=== PATIENT | male | born 1945 | race Caucasian/White ===

== ENCOUNTER 2017-05-21 12:23 | Emergency (ER) | payer MEDICARE, SELFPAY ==
--- NOTE | 2017-05-21 14:44 | RAD ---
RADIOGRAPH RIGHT HAND 3 VIEWS: Date: 05/21/17 HISTORY: 72-year-old male status post acute traumatic injury to the right hand. FINDINGS: There is a comminuted fracture of the third proximal phalanx, involving the diaphysis, with extension s to both the distal and proximal metaphyses. Some of the fracture components are nondisplaced. There is mild displacement involving proximal fracture components. There is mild dorsal angulation of the distal 2/3 of the proximal phalanx relative to the proximal 1/3. No intraarticular extension identifi ed. No dislocation. Diffuse soft tissue swelling of third digit. IMPRESSION: Acute, traumatic, closed, comminuted, mildly displaced, and mildly angulated fracture of the right th ird proximal phalanx. POS: CHRIS
== END 2017-05-21 14:50 | disposition home or self-care (01) ==
LOC: NAV ERS 12:23
DX: S62.612A Displaced fracture of proximal phalanx of right middle finger, initial encounter for closed fracture (principal); I10 Essential (primary) hypertension; E78.5 Hyperlipidemia, unspecified; X50.1XXA Overexertion from prolonged static or awkward postures, initial encounter
CPT/HCPCS: Q4049

== ENCOUNTER 2018-06-21 11:44 | Outpatient (CLI) | payer MEDICARE ==
--- NOTE | 2018-06-21 12:56 | RAD ---
FOUR VIEWS LEFT KNEE: HISTORY: Left knee pain. FINDINGS: AP, lateral, and both oblique views left knee obtained. Images demonstrate vascular calcification seen in the left superficial femoral artery, popliteal paula ry, and post trifurcation arteries. No evidence of acute left knee fractures, subluxations, or bony lesions seen. IMPRESSION: Unremarkable 4 views left knee. POS: C
== END 2018-06-21 11:45 | disposition home or self-care (01) ==
LOC: NAV RAD 11:44
PROVIDERS: ATTEND Internal Medicine
DX: M25.562 Pain in left knee (principal)

== ENCOUNTER 2019-01-03 11:11 | Outpatient (CLI) | payer MEDICARE ==
--- NOTE | 2019-01-03 11:39 | RAD ---
XR Hand Rt 3 View STANDARD: 01/03/2019 11:19 AM CLINICAL INDICATION: Pain COMPARISON: 05/21/2017 FINDINGS: Fracture:Chronic osseous deformity of the proximal phalanx of the third digit, and fifth metacarpal. No acute fracture visualized Arthropathy:Scattered moderate osteoarthritis. Incidental findings:Vascular calcification IMPRESSION: 1. No acute osseous abnormality.
== END 2019-01-03 11:12 | disposition home or self-care (01) ==
LOC: NAV RAD 11:11
PROVIDERS: ATTEND Internal Medicine
DX: M79.641 Pain in right hand (principal)

== ENCOUNTER 2019-02-12 00:03 | Emergency (ER) | payer MEDICARE ==
[2019-02-12] MEDS ORDERED: Ondansetron PF 4 MG/2 ML Vial ONE (01:27)
[2019-02-12] MEDS ORDERED: Morphine 4 MG/ML VIAL ONE (01:27)
[2019-02-12 01:30] LABS: #Eosinphils 0.1 thou/uL (0.0-0.7); #Lymphocytes 1.1 thou/uL (1.20-3.40); #Monocytes 0.7 thou/uL (0.11-0.59); #Neutrophils 4.5 thou/uL (1.40-6.50); %Basophils 0.6 % (0.0-1.0); %Eosinophils 1.7 % (0.0-10.0); %Lymphocytes 16.4 % (21.0-51.0); %Monocytes 10.7 % (0.0-10.0); %Neutrophils 70.6 % (42.0-75.0); Hemoglobin 12.2 g/dL (14.0-18.0); Mean Corpuscular HGB CONC 34.2 g/dL (32.0-36.0); Mean Corpuscular Hemoglobin 30.2 pg (27.0-31.0); Mean Corpuscular Volume 88.3 fL (78.0-98.0); Mean Platelet Volume 5.6 fL (7.4-10.4); Platelet Count 243 thou/uL (130-400); RBC Distribution Width 11.2 % (11.5-14.5); Red Blood Cell (RBC) Count 4.04 mill/uL (4.70-6.10); White Blood Cell (WBC) Count 6.4 thou/uL (4.8-10.8)
[2019-02-12 01:47] LABS: ALT (SGPT) 17 U/L (8-55); AST (SGOT) 19 U/L (5-34); Albumin 3.8 g/dL (3.4-4.8); Alkaline Phosphatase 93 U/L (40-110); Anion Gap 16 mmol/L (10-20); BUN (Urea Nitrogen) 18 mg/dL (8.4-25.7); Bilirubin, Total 0.6 mg/dL (0.2-1.2); CK (CPK) 101 U/L (30-200); Calc. Creatinine Clearance 0 mL/min (70-130); Calcium 8.9 mg/dL (7.8-10.44); Carbon Dioxide 20 mmol/L (23-31); Chloride 104 mmol/L (98-107); Estimated GFR-MDRD 76; Globulin 2.6 g/dL (2.4-3.5); Glucose 107 mg/dL (83-110); Magnesium 2.1 mg/dL (1.6-2.6); Potassium 3.8 mmol/L (3.5-5.1); Protein, Total 6.4 g/dL (5.8-8.1); Sodium 136 mmol/L (136-145)
--- NOTE | 2019-02-12 07:35 | RAD ---
EXAM: Single view of the chest HISTORY: Dyspnea COMPARISON: 06/08/2002 FINDINGS: Single view of the chest shows a normal sized cardiomediastinal silhouette. The patient is status post sternotomy. There is no evidence of consolidation, mass, or pleural effusion. The bones are unremarkable. IMPRESSION: No evidence of acute cardiopulmonary disease
--- NOTE | 2019-02-12 07:45 | CT ---
PRELIMINARY REPORT/[facility]/EMERGENCY AFTER HOURS PROCEDURE: PROCEDURE: CT Head without Contrast . HISTORY: Upper and lower extremity pain with cardiac history. TECHNIQUE: Axial images were performed without the administration of IV contrast with or without mult iplanar reformations . COMPARISON: None . FINDINGS: Brain shows no mass, hemorrhage, or acute stroke. Mild periventricular old microischemic changes. Mild diffuse cerebral and cerebellar atrophy. Modera tely severe atherosclerotic calcifications anterior and posterior circulation at the skull base. Ventricles are normal size for patient's age. No acute skull or scalp abnormality. Mild mucosal thickening and cyst RIGHT maxillary sinus. Clear mastoids. IMPRESSION: No acute intracranial abnormality. Senescent changes. Sinus changes as described above . ELECTRONICALLY SIGNED BY: Topher Vasques MD Feb 12, 2019 4:32:07 AM SEMICONDUCTOR DEVELOPMENT TECHNICIAN FINAL REPORT CT BRAIN WITHOUT CONTRAST: COMPARISON: None. FINDINGS/IMPRESSION: I agree with the findings and impression given in the preliminary report per [facility] physici an. No evidence of acute intracranial abnormality. POS: OFF
--- NOTE | 2019-02-12 07:55 | CT ---
PRELIMINARY REPORT/[facility]/EMERGENCY AFTER HOURS PROCEDURE PROCEDURE: CTA Chest with IV Contrast Material . HISTORY: Upper and lower extremity pain with cardiac history. TECHNIQUE: Axial images were performed with multiplanar and 3-D (maximum intensity projection and adolfo face-shaded) reconstructions. The patient was given iodinated nonionic IV contrast . COMPARISON: None . FINDINGS: Mild atherosclerosis thoracic aorta with no aneurysm or dissection. No evidence of pulmonar y embolus. Mediastinum and hilar regions show no masses or lymphadenopathy. Small hiatal hernia. Hea rt size upper limits of normal with no pericardial fluid. Dependent atelectasis both lung cisneros. No pulmonary consolidation, masses, or pleural fluid. Some emphysematous changes bilaterally. Visualiz ed upper abdomen shows 3 cm caudate lobe cyst. Small stones in the gallbladder with no inflammation and normal size biliary tree. No acute bony abnormality. Previous sternotomy. IMPRESSION: No pulmonary embolus or aortic dissection. COPD. Heart size upper limits of normal. Small hiatal hernia. Cholelithiasis. ELECTRONICALLY SIGNED BY: Topher Vasques MD Feb 12, 2019 4:34:51 AM MANAGER STAFFING FINAL REPORT EMERGENT AFTER HOURS CTA OF THE CHEST: FINDINGS/IMPRESSION: I agree with the findings and impression given in the preliminary report per [facility] physici [facility]. 1. No evidence of pulmonary thromboembolism. 2. Cholelithiasis. 3. Hiatal hernia. 4. Hepatic cyst. POS: OFF
[2019-02-12] MEDS ORDERED: Iopamidol 370 76% 100 ML VIAL ONE (09:00)
== END 2019-02-12 06:01 | disposition short-term general hospital (02) ==
LOC: NAV ERS 00:03
DX: M62.81 Muscle weakness (generalized) (principal); M25.461 Effusion, right knee; R79.1 Abnormal coagulation profile; I25.10 Atherosclerotic heart disease of native coronary artery without angina pectoris; E78.5 Hyperlipidemia, unspecified; E78.00 Pure hypercholesterolemia, unspecified; I10 Essential (primary) hypertension; Z79.82 Long term (current) use of aspirin; Z79.899 Other long term (current) drug therapy
CPT/HCPCS: 70450; 71045; 71275; 80053; 82550; 83735; 83880; 84443; 84484; 85025; 85379; 93005; 94760; 96374; 96375; J2270; J2405; Q9967

== ENCOUNTER 2019-04-27 07:09 | Emergency (ER) | payer MEDICARE ==
[2019-04-27 07:47] LABS: #Lymphocytes 1.6 thou/uL (1.20-3.40); #Monocytes 0.5 thou/uL (0.11-0.59); #Neutrophils 4.9 thou/uL (1.40-6.50); %Basophils 0.3 % (0.0-1.0); %Eosinophils 0.7 % (0.0-10.0); %Lymphocytes 22.3 % (21.0-51.0); %Monocytes 6.7 % (0.0-10.0); %Neutrophils 70.1 % (42.0-75.0); Hemoglobin 13.6 g/dL (14.0-18.0); Mean Corpuscular HGB CONC 33.7 g/dL (32.0-36.0); Mean Corpuscular Hemoglobin 29.1 pg (27.0-31.0); Mean Corpuscular Volume 86.4 fL (78.0-98.0); Mean Platelet Volume 5.5 fL (7.4-10.4); Platelet Count 206 thou/uL (130-400); RBC Distribution Width 14.6 % (11.5-14.5); Red Blood Cell (RBC) Count 4.68 mill/uL (4.70-6.10); White Blood Cell (WBC) Count 7.1 thou/uL (4.8-10.8)
[2019-04-27 08:10] LABS: ALT (SGPT) 23 U/L (8-55); AST (SGOT) 11 U/L (5-34); Albumin 3.8 g/dL (3.4-4.8); Alkaline Phosphatase 64 U/L (40-110); Anion Gap 14 mmol/L (10-20); BUN (Urea Nitrogen) 24 mg/dL (8.4-25.7); Bilirubin, Total 0.7 mg/dL (0.2-1.2); CK (CPK) 32 U/L (30-200); Calc. Creatinine Clearance 0 mL/min (70-130); Calcium 8.3 mg/dL (7.8-10.44); Carbon Dioxide 20 mmol/L (23-31); Chloride 103 mmol/L (98-107); Estimated GFR-MDRD 82; Globulin 1.9 g/dL (2.4-3.5); Glucose 115 mg/dL (83-110); Lipase 20 U/L (8-78); Protein, Total 5.7 g/dL (5.8-8.1); Sodium 133 mmol/L (136-145)
--- NOTE | 2019-04-27 08:39 | RAD ---
PORTABLE CHEST: DATE: 04/27/2019. PROVIDED CLINICAL HISTORY: Chest pain. FINDINGS: Comparison 02/12/2019. Cardiac and mediastinal silhouette is unchanged in appearance. Atheroscleros is, median sternotomy changes, and CABG changes are seen. No focal consolidation, pleural fluid, or pneumothorax apparent. IMPRESSION: No evidence for an acute cardiopulmonary process. POS: TPC
[2019-04-27] MEDS ORDERED: Ondansetron PF 4 MG/2 ML Vial ONE (09:08)
[2019-04-27] MEDS ORDERED: Morphine 4 MG/ML VIAL ONE (09:08)
== END 2019-04-27 09:35 | disposition short-term general hospital (02) ==
LOC: NAV ERS 07:09
DX: T18.128A Food in esophagus causing other injury, initial encounter (principal); R07.9 Chest pain, unspecified; R11.2 Nausea with vomiting, unspecified; M35.3 Polymyalgia rheumatica; I25.10 Atherosclerotic heart disease of native coronary artery without angina pectoris; E78.5 Hyperlipidemia, unspecified; E78.00 Pure hypercholesterolemia, unspecified; I10 Essential (primary) hypertension; Z79.899 Other long term (current) drug therapy; Z79.82 Long term (current) use of aspirin
CPT/HCPCS: 36415; 71045; 80053; 82550; 83690; 84484; 85025; 93005; 96374; 96375; J1610; J2270; J2405

== ENCOUNTER 2019-08-31 09:25 | Emergency (ER) | payer MEDICARE ==
[2019-08-31] MEDS ORDERED: Morphine 4 MG/ML VIAL ONE (09:49)
[2019-08-31] MEDS ORDERED: Ondansetron ODT 4 MG TAB ONE (10:02)
--- NOTE | 2019-08-31 10:04 | RAD ---
XR Chest Pa Lat STANDARD HISTORY: Fall, left chest pain COMPARISON: 06/09/2002 FINDINGS: The heart size is normal. Changes of median sternotomy are again seen. The aorta is tortuou s. The lungs are well expanded without focal areas of consolidation, pneumothorax or pleural effusions. There are old right-sided rib fractures.. IMPRESSION: No radiographic evidence of acute cardiopulmonary process.
--- NOTE | 2019-08-31 10:10 | CT ---
CT BRAIN NONCONTRAST: DATE: 08/31/2019 HISTORY: 74-year-old male status post acute head trauma from fall FINDINGS: There is no evidence of acute intra-axial or extra-axial hemorrhage. There is no midline shift or any other mass effect. There is no extra-axial fluid collection. There is no evidence of obstructive hydrocephalus. Calvarium is intact. There is diffuse brain parenchymal volume loss. There are low att enuation areas in the white matter. These are nonspecific, but in a patient of this age, they are probably chronic ischemic white matter changes due to microvascular atherosclerosis. Approximate 75% or greater opacification of right maxillary sinus. Near total opacification of left sphenoid air cell. No air-fluid levels in paranasal sinuses. The rest of the sinuses are essentially clear. Bilate ral tympanomastoid cavities are grossly clear. IMPRESSION: 1) No acute intracranial findings. 2) involutional changes and chronic ischemic white matter changes. 3) evidence for right ostiomeatal unit occlusive disease of right maxillary sinus. 4) evidence for left sphenoethmoidal recess occlusive disease of left sphenoid air cell.
[2019-08-31] MEDS ORDERED: Ketorolac Tromethamine 30 MG/ML VIAL ONE (10:16)
[2019-08-31] MEDS ORDERED: Acetaminophen 500 MG TAB ONE (10:16)
== END 2019-08-31 10:40 | disposition home or self-care (01) ==
LOC: NAV ERS 09:25
DX: S29.011A Strain of muscle and tendon of front wall of thorax, initial encounter (principal); S22.32XA Fracture of one rib, left side, initial encounter for closed fracture; I10 Essential (primary) hypertension; I25.10 Atherosclerotic heart disease of native coronary artery without angina pectoris; E78.5 Hyperlipidemia, unspecified; Z79.899 Other long term (current) drug therapy; Z79.82 Long term (current) use of aspirin; W01.0XXA Fall on same level from slipping, tripping and stumbling without subsequent striking against object, initial encounter
CPT/HCPCS: 70450; 71046; 96372; 96374; J1885; J2270; Q0162

== ENCOUNTER 2019-09-26 09:33 | Emergency (ER) | payer MEDICARE ==
[2019-09-26] MEDS ORDERED: Morphine 4 MG/ML VIAL ONE ×2 (10:08→12:31)
[2019-09-26] MEDS ORDERED: Sodium Chloride 0.9% 500 ML ONE (10:08)
[2019-09-26] MEDS ORDERED: Ondansetron PF 4 MG/2 ML Vial ONE (10:08)
[2019-09-26 10:29] LABS: #Lymphocytes 0.9 thou/uL (1.20-3.40); #Monocytes 0.6 thou/uL (0.11-0.59); %Basophils 0.4 % (0.0-1.0); %Eosinophils 0.2 % (0.0-10.0); %Lymphocytes 12.5 % (21.0-51.0); %Monocytes 7.6 % (0.0-10.0); %Neutrophils 79.3 % (42.0-75.0); Hemoglobin 14.1 g/dL (14.0-18.0); Mean Corpuscular HGB CONC 34.2 g/dL (32.0-36.0); Mean Corpuscular Hemoglobin 31.3 pg (27.0-31.0); Mean Corpuscular Volume 91.6 fL (78.0-98.0); Mean Platelet Volume 6.4 fL (7.4-10.4); Platelet Count 193 thou/uL (130-400); RBC Distribution Width 11.3 % (11.5-14.5); White Blood Cell (WBC) Count 7.5 thou/uL (4.8-10.8)
[2019-09-26 10:36] LABS: Bilirubin Negative (Negative); Blood, Urine Negative (Negative); Clarity Clear (Clear); Glucose, Urine (Dipstick) Negative (Negative); Ketone, Urine Negative (Negative); Leukocyte Negative (Negative); Nitrite Negative (Negative); Protein, Urine (Dipstick) 30 mg/dL (Neg-Trace); Specific Gravity, Urine 1.025 (1.005-1.030); Urobilinogen 0.2 mg/dL (Less than 2); pH, Urine 6.5 (5.0-9.0)
[2019-09-26 10:38] LABS: Bacteria/HPF None Seen HPF (None Seen); Mucous/LPF Rare LPF (<2+); WBC/HPF None Seen HPF (0-3)
[2019-09-26 10:39] LABS: ALT (SGPT) 18 U/L (8-55); AST (SGOT) 17 U/L (5-34); Albumin 4.1 g/dL (3.4-4.8); Alkaline Phosphatase 95 U/L (40-110); Anion Gap 15 mmol/L (10-20); BUN (Urea Nitrogen) 15 mg/dL (8.4-25.7); Bilirubin, Total 0.7 mg/dL (0.2-1.2); Calc. Creatinine Clearance 0 mL/min (70-130); Calcium 9.2 mg/dL (7.8-10.44); Carbon Dioxide 22 mmol/L (23-31); Chloride 102 mmol/L (98-107); Estimated GFR-MDRD 89; Glucose 167 mg/dL (83-110); Lipase 18 U/L (8-78); Potassium 3.4 mmol/L (3.5-5.1); Protein, Total 6.1 g/dL (5.8-8.1); Sodium 136 mmol/L (136-145)
--- NOTE | 2019-09-26 10:53 | CT ---
CT Stone Protocol 09/26/2019 10:07 AM HISTORY: Right-sided back and flank pain with uncontrolled blood pressure. COMPARISON: CTA abdomen and pelvis on 12/12/2018 Technique: Multiple contiguous axial CT images are obtained through the abdomen and pelvis without IV contrast. Coronal reformats are provided. FINDINGS: This examination is limited for the evaluation of solid organs and vascular structures due to the lac k of intravenous contrast. Lower Chest: Prominent coronary artery calcifications are visualized with dense vascular calcificatio ns in the thoracic aorta. A hiatal hernia is seen with the fundus of the stomach above the level of the hemidiaphragms. Mild dependent atelectasis is seen bilaterally. Abdomen: Liver: Stable cyst caudate lobe of the liver. Gallbladder: Evidence of cholelithiasis with distention of the gallbladder measuring 11 cm in length. Pancreas: Grossly normal nonenhanced CT appearance. Spleen: Grossly normal nonenhanced CT appearance. Adrenals: Grossly normal nonenhanced CT appearance. Kidneys: Exophytic inferior pole left renal cyst again seen. There is no hydronephrosis or calculus i dentified. Ureters: No ureteral calculus is seen.. Pelvis: Urinary bladder: Incompletely distended. Reproductive Organs: No pelvic masses. Lymph Nodes: There is a calcified oval-shaped structure in the lower right pelvis unchanged from prio r study which could be related to calcified lymph node. No enlarged lymph nodes are seen by CT size criteria. Bowel: Colonic diverticulosis. Loops of small bowel are normal in caliber. Appendix: The appendix is normal in caliber. Peritoneum: No free fluid, free air, or fluid collection. Retroperitoneum: within normal limits. Vessels: Dense vascular calcifications in the abdominal aorta and iliac arteries. Aortic stent graft is noted in place related to abdominal aortic aneurysm repair. Aneurysm sac diameter measures 3.4 cm x 3.2 cm and is unchanged compared to prior study. Renal artery stents are again seen bilaterally. . Abdominal Wall: within normal limits. Bones: No lytic or sclerotic osseous lesions. Degenerative changes in the spine. IMPRESSION: 1. No renal or ureteral calculi are seen bilaterally. 2. Cholelithiasis with distention of the gallbladder which measures 11.6 cm in length. 3. Small hiatal hernia. 4. Colonic diverticulosis. 5. Left renal cyst as well as cysts caudate lobe of the liver. 6. Dense vascular calcifications. Endograft repair of abdominal aortic aneurysm is present, and the a neurysm sac diameter is stable compared to prior study in 2019.
--- NOTE | 2019-09-26 11:01 | RAD ---
EXAM: Single view of the chest HISTORY: Right back and flank pain; hypertension COMPARISON: 04/27/2019 FINDINGS: Single view of the chest shows a normal sized cardiomediastinal silhouette. The patient is status post CABG. There is no evidence of consolidation, mass, or pleural effusion. The bones are unremarkable IMPRESSION: No evidence of acute cardiopulmonary disease
[2019-09-26] MEDS ORDERED: Potassium Chloride 20 MEQ TAB ONE (11:50)
[2019-09-26] MEDS ORDERED: Ketorolac Tromethamine 30 MG/ML VIAL ONE (11:59)
== END 2019-09-26 12:44 | disposition short-term general hospital (02) ==
LOC: NAV ERS 09:33
DX: K80.20 Calculus of gallbladder without cholecystitis without obstruction (principal); I10 Essential (primary) hypertension; E87.6 Hypokalemia; I25.10 Atherosclerotic heart disease of native coronary artery without angina pectoris; E78.5 Hyperlipidemia, unspecified; Z79.899 Other long term (current) drug therapy
CPT/HCPCS: 71045; 74176; 80053; 81003; 81015; 83605; 83690; 84484; 85025; 85652; 86140; 87086; 93005; 96361; 96374; 96375; 96376; J1885; J2270; J2405; J7030

== ENCOUNTER 2020-01-08 19:44 | Emergency (ER) | payer MEDICARE ==
[2020-01-08 20:23] LABS: #Lymphocytes 0.3 thou/uL (1.20-3.40); #Monocytes 0.4 thou/uL (0.11-0.59); #Neutrophils 8.7 thou/uL (1.40-6.50); %Basophils 0.2 % (0.0-1.0); %Lymphocytes 3.5 % (21.0-51.0); %Neutrophils 92.3 % (42.0-75.0); Hemoglobin 13.9 g/dL (14.0-18.0); Mean Corpuscular HGB CONC 34.9 g/dL (32.0-36.0); Mean Corpuscular Hemoglobin 33.4 pg (27.0-31.0); Mean Corpuscular Volume 95.6 fL (78.0-98.0); Mean Platelet Volume 5.8 fL (7.4-10.4); Platelet Count 166 thou/uL (130-400); RBC Distribution Width 11.5 % (11.5-14.5); Red Blood Cell (RBC) Count 4.16 mill/uL (4.70-6.10); White Blood Cell (WBC) Count 9.4 thou/uL (4.8-10.8)
[2020-01-08] MEDS ORDERED: Boostrix 0.5 ML (Tdap) VIAL ONE (20:42)
== END 2020-01-08 20:55 | disposition home or self-care (01) ==
LOC: NAV ERS 19:44
DX: S81.802A Unspecified open wound, left lower leg, initial encounter (principal); E78.5 Hyperlipidemia, unspecified; E78.00 Pure hypercholesterolemia, unspecified; I10 Essential (primary) hypertension; Z79.899 Other long term (current) drug therapy; W19.XXXA Unspecified fall, initial encounter
CPT/HCPCS: 12001; 85025; 90715

== ENCOUNTER 2020-01-28 10:44 | Outpatient (CLI) | payer MEDICARE ==
--- NOTE | 2020-01-28 11:32 | RAD ---
EXAM: XR Lumbar Spine 2 Or 3 View DATE: 01/28/2020 10:54 AM INDICATION: Low back pain COMPARISON: MR of the lumbar spine with and without contrast dated August 16, 2019 FINDING: The vertebral body heights and spinal alignment appear within normal limits. The mild disc degenerative disease seen most prominent from L3-4 through L5-S1 is stable. Itjf-qf-rywkfkqk facet osteoarthrosis at L3-4 through L5-S1 is stable appearing. There is an aortobiiliac endograft stent in place. There are severe vascular calcifications seen involving the visualized vasculature. Slight rightward curvature of the lumbar spine is stable. Visualized bowel gas pattern is nonspecific but wi thout evidence of obstruction. IMPRESSION:Stable mild to moderate lumbar spondylosis. No acute fracture or subluxation demonstrated.
== END 2020-01-28 10:45 | disposition home or self-care (01) ==
LOC: NAV RAD 10:44
PROVIDERS: ATTEND Internal Medicine Rheumatology
DX: M54.5 Low back pain (principal); M47.816 Spondylosis without myelopathy or radiculopathy, lumbar region
CPT/HCPCS: 72100

== ENCOUNTER 2020-02-12 10:20 | Emergency (ER) | payer MEDICARE ==
--- NOTE | 2020-02-12 11:16 | RAD ---
XR Chest 1 View Portable History: Dyspnea Comparison: Radiograph February 03, 2020 Findings: Slight interval increased confluence lingular left lower lobe consolidation. New right lowe r lobe consolidation. No pneumothorax. Impression: Mildly progressive multifocal pneumonia.
[2020-02-12 11:23] LABS: #Monocytes 0.5 thou/uL (0.11-0.59); #Neutrophils 7.5 thou/uL (1.40-6.50); %Basophils 0.5 % (0.0-1.0); %Eosinophils 0.3 % (0.0-10.0); %Lymphocytes 10.9 % (21.0-51.0); %Monocytes 5.2 % (0.0-10.0); Hemoglobin 13.4 g/dL (14.0-18.0); Mean Corpuscular HGB CONC 35.7 g/dL (32.0-36.0); Mean Corpuscular Hemoglobin 32.1 pg (27.0-31.0); Mean Corpuscular Volume 90.1 fL (78.0-98.0); Mean Platelet Volume 6.1 fL (7.4-10.4); Platelet Count 317 thou/uL (130-400); RBC Distribution Width 11.6 % (11.5-14.5); Red Blood Cell (RBC) Count 4.16 mill/uL (4.70-6.10); White Blood Cell (WBC) Count 9.1 thou/uL (4.8-10.8)
[2020-02-12 11:38] LABS: ALT (SGPT) 19 U/L (8-55); AST (SGOT) 18 U/L (5-34); Albumin 3.2 g/dL (3.4-4.8); Alkaline Phosphatase 88 U/L (40-110); Anion Gap 14 mmol/L (10-20); BUN (Urea Nitrogen) 21 mg/dL (8.4-25.7); Bilirubin, Total 0.8 mg/dL (0.2-1.2); Calc. Creatinine Clearance 0 mL/min (70-130); Calcium 8.5 mg/dL (7.8-10.44); Carbon Dioxide 21 mmol/L (23-31); Chloride 101 mmol/L (98-107); Globulin 1.9 g/dL (2.4-3.5); Glucose 113 mg/dL (83-110); Magnesium 1.5 mg/dL (1.6-2.6); Potassium 3.3 mmol/L (3.5-5.1); Protein, Total 5.1 g/dL (5.8-8.1); Sodium 133 mmol/L (136-145)
[2020-02-12] MEDS ORDERED: Aspirin Chewable 81 MG TAB ONE (12:43)
== END 2020-02-12 14:50 | disposition short-term general hospital (02) ==
LOC: NAV ERS 10:20
DX: U07.1 COVID-19 (principal); J12.89 Other viral pneumonia; R41.82 Altered mental status, unspecified; R94.31 Abnormal electrocardiogram [ECG] [EKG]; R79.1 Abnormal coagulation profile; R79.89 Other specified abnormal findings of blood chemistry; L89.152 Pressure ulcer of sacral region, stage 2; I71.6 Thoracoabdominal aortic aneurysm, without rupture; E78.5 Hyperlipidemia, unspecified; E78.00 Pure hypercholesterolemia, unspecified; I10 Essential (primary) hypertension; Z79.82 Long term (current) use of aspirin; Z79.899 Other long term (current) drug therapy
CPT/HCPCS: 71045; 80053; 82553; 83605; 83735; 83880; 84484; 85025; 85379; 93005; 94760

== ENCOUNTER 2020-02-16 15:49 | Inpatient (IN) | payer MEDICARE ==
[2020-02-16] MEDS ORDERED: Senokot S 8.6-50 MG TAB PO PRN (17:00)
[2020-02-16] MEDS ORDERED: Zolpidem Tartrate 5 MG TAB PO PRN (17:00)
[2020-02-16] MEDS ORDERED: traMADol HCl 50 MG TAB PO PRN (17:00)
[2020-02-16] MEDS ORDERED: Bisacodyl 10 MG SUPP PR PRN (17:00)
[2020-02-16] MEDS ORDERED: Dextrose 50% Abboject 50 ML SYRINGE SLOW IVP PRN (17:02)
[2020-02-16] MEDS ORDERED: Non-Formulary Item 1 EACH (Omeprazole [Omeprazole] 20 MG Capsule.Dr) PO SCH (18:00)
[2020-02-16] MEDS: Gabapentin 300 MG CAP PO SCH (20:56)
[2020-02-16] MEDS: hydrALAZINE 25 MG TAB PO SCH (20:57)
[2020-02-16] MEDS: Famotidine 20 MG TAB PO SCH (20:57)
[2020-02-17] MEDS ORDERED: Ondansetron ODT 4 MG TAB PO PRN (04:08)
[2020-02-17 05:22] LABS: #Basophils 0.1 thou/uL (0.0-0.2); #Eosinphils 0.1 thou/uL (0.0-0.7); #Lymphocytes 1.1 thou/uL (1.20-3.40); #Monocytes 0.6 thou/uL (0.11-0.59); #Neutrophils 5.5 thou/uL (1.40-6.50); %Basophils 0.8 % (0.0-1.0); %Eosinophils 1.5 % (0.0-10.0); %Lymphocytes 15.5 % (21.0-51.0); %Monocytes 8.2 % (0.0-10.0); Hemoglobin 13.3 g/dL (14.0-18.0); Mean Corpuscular HGB CONC 35.4 g/dL (32.0-36.0); Mean Corpuscular Hemoglobin 32.1 pg (27.0-31.0); Mean Corpuscular Volume 90.7 fL (78.0-98.0); Mean Platelet Volume 6.1 fL (7.4-10.4); Platelet Count 236 thou/uL (130-400); RBC Distribution Width 11.7 % (11.5-14.5); Red Blood Cell (RBC) Count 4.15 mill/uL (4.70-6.10); White Blood Cell (WBC) Count 7.4 thou/uL (4.8-10.8)
[2020-02-17 05:35] LABS: ALT (SGPT) 11 U/L (8-55); AST (SGOT) 18 U/L (5-34); Albumin 2.8 g/dL (3.4-4.8); Alkaline Phosphatase 81 U/L (40-110); Anion Gap 15 mmol/L (10-20); BUN (Urea Nitrogen) 19 mg/dL (8.4-25.7); Bilirubin, Total 0.9 mg/dL (0.2-1.2); Calc. Creatinine Clearance 68 mL/min (70-130); Calcium 7.7 mg/dL (7.8-10.44); Carbon Dioxide 19 mmol/L (23-31); Chloride 106 mmol/L (98-107); Globulin 2.3 g/dL (2.4-3.5); Glucose 113 mg/dL (83-110); Potassium 3.4 mmol/L (3.5-5.1); Protein, Total 5.1 g/dL (5.8-8.1); Sodium 137 mmol/L (136-145)
[2020-02-17] MEDS ORDERED: metFORMIN 500 MG TAB PO SCH (08:00)
[2020-02-17] MEDS: Cilostazol 100 MG TAB PO SCH ×2 (08:11→16:43)
[2020-02-17] MEDS: Amlodipine 5 MG TAB PO SCH (08:12)
[2020-02-17] MEDS: Aspirin 325 MG TAB PO SCH (08:12)
[2020-02-17] MEDS: Chlorthalidone 25 MG TAB PO SCH (08:14)
[2020-02-17] MEDS: hydrALAZINE 25 MG TAB PO SCH ×2 (08:15→20:58)
[2020-02-17] MEDS: Gabapentin 300 MG CAP PO SCH ×2 (08:15→20:58)
[2020-02-17] MEDS: Famotidine 20 MG TAB PO SCH ×2 (08:15→20:58)
[2020-02-17] MEDS: Clopidogrel Bisulfate 75 MG TAB PO SCH (08:15)
--- NOTE | 2020-02-17 08:40 | HP ---
This is a patient of Dr. Reyes Nassar. HISTORY OF PRESENT ILLNESS: The patient is a 74-year-old white male with multiple medical problems including coronary artery disease, status post coronary artery bypass graft, peripheral vascular disease, renal artery stenosis, polymyalgia rheumatica on intermittent steroids, treatment with subsequent decompensation of diabetic control, hypertension, and thoracoabdominal aneurysm with previous stenting, who has had diagnosis of COVID-19 pneumonias since February 02 with treatment with remdesivir, Decadron and improvement in his oxygenation and subsequent dismissal on February 07, however, he has been unable to maintain ADLs secondary to severe weakness and had shortness of breath on exertion despite no hypoxemia. Therefore, he presented back to the [facility]'s Emergency Room on February 11. He was found to have indeterminate D-dimer and troponin. There was some abnormality of his chest x-ray, where he has CT angio of the chest, which showed no evidence of pulmonary embolus and only findings of the stable infiltrates from COVID pneumonia. While he has been there, he has been fairly stable except for his weakness with no need for any pulmonary or cardiac intervention, but has been unable to maintain ADLs and therefore is recommended to the [facility] for PT and OT. At this time, the patient is in no distress, lying in his bed with no chest pain, shortness of breath. His main complaint is weakness and anorexia. He states that he has lost some weight, but does not know how much is complaining of intermittent nausea. MEDICATIONS: He has been taking his medications of; 1. Amlodipine 5 mg daily. 2. Aspirin 325 daily. 3. Chlorthalidone 12.5 daily. 4. Cilostazol 100 mg daily. 5. Clopidogrel 75 twice daily. 6. Famotidine 20 twice daily. 7. Gabapentin 600 twice daily. 8. Metformin 500 in the morning. 9. Hydralazine 25 twice daily. 10. Sertraline 50 mg daily. ALLERGIES: HE HAS HISTORY OF ALLERGIES TO ATORVASTATIN, SIMVASTATIN, AND LISINOPRIL. PAST MEDICAL HISTORY: He has the above-mentioned medical history. PAST SURGICAL HISTORY: Positive for the above-mentioned coronary artery bypass graft, esophageal dilation, multiple vascular stents. FAMILY MEDICAL HISTORY: Positive for diffuse coronary artery disease. SOCIAL HISTORY: Nonsmoker. Rarely drinks alcohol. He is . He lives with his . REVIEW OF SYSTEMS: HEENT: Denies headaches, dizziness, change in vision or hearing, hoarseness, or dysphagia. PULMONARY: Denies cough, sputum production, pneumonia, asthma, or tuberculosis. CARDIOVASCULAR: Denies chest pain, orthopnea, paroxysmal nocturnal dyspnea, or edema. GASTROINTESTINAL: Complains of anorexia and nausea, poor appetite, but no vomiting. No constipation or diarrhea. No abdominal pain. GENITOURINARY: Denies dysuria, hematuria, or nocturia. MUSCULOSKELETAL: Complains of diffuse generalized weakness, but no specific joint tenderness or weakness. NEUROLOGIC: Denies localized numbness or tingling in arms or extremities. PHYSICAL EXAMINATION: GENERAL: The patient is an elderly white male, lying in bed, in no acute distress. Oriented x3 and cooperative. VITAL SIGNS: Showed a temperature of 98.6, pulse 97, respirations 18, O2 saturations 96% on room air, and blood pressure is 111/65. HEENT: Pupils are equal, round, and reactive to light and accommodation. Sclerae are anicteric. Conjunctivae are pale. Oral mucous membranes, well hydrated. NECK: Supple. There are no nodes or masses. JVP is not elevated. LUNGS: Clear. CARDIAC: Shows regular rhythm. No gallops or murmurs. ABDOMEN: Soft and nontender with no masses or organomegaly. SKIN/EXTREMITIES: Showed no edema, clubbing, or cyanosis. NEUROLOGICAL: Intact. LABORATORY DATA: Done yesterday showed troponin indeterminate. Accu-Cheks ranged to 165. White count 7100, hematocrit 33, and hemoglobin 12. TSH 2.1. ASSESSMENT AND PLAN: A 74-year-old white male with history of hypertension, hyperlipidemia, diffuse peripheral vascular disease, coronary artery disease, who presents with persistent weakness, debility, inability to maintain ADLs, and COVID-19 pneumonia. He is not hypoxic at this time on room air. Vital signs are stable. He is very weak and is complaining mainly of nausea and anorexia. He is continued on his metformin plus Plavix, amlodipine, chlorthalidone, gabapentin, metformin, so we will discontinue that and continue to control his diabetes only with Accu-Cheks. He will be started on PT. We will monitor for hypoxemia. We will change to vital signs with therapy, possibly monitor for any episodes of chest pain or shortness of breath or signs of angina with his therapy. Job ID: [id number]
[2020-02-18] MEDS: Cilostazol 100 MG TAB PO SCH ×2 (07:29→16:26)
--- NOTE | 2020-02-18 08:20 | PRG ---
DATE OF SERVICE: 02/17/[address] Reyes Nassar. SUBJECTIVE: The patient is lying in bed, eating his supper, but states he still has poor appetite with no further nausea, but has required Zofran over the last 24 hours. He does state that he is taking metformin now and had not been taking it previously as an outpatient. OBJECTIVE: VITAL SIGNS: Show temperature 98.6, pulse 99, respirations 20, O2 saturations 96% on room air, blood pressure 129/73. LUNGS: Clear. CARDIAC: Showed regular rhythm. ABDOMEN: Soft and nontender. ASSESSMENT: 1. Severe deconditioning secondary to COVID-19 pneumonia. Awaiting therapy tomorrow. 2. COVID-19 pneumonia, resolved. 3. Type 2 diabetes, controlled fairly well on metformin, but with possible side effect of nausea and anorexia. 4. History of polymyalgia rheumatica, on no treatment at this time. 5. Coronary artery disease, status post coronary artery bypass graft, asymptomatic. PLAN: PT/OT tomorrow. Dr. Nassar to resume care tonight. Consider change in metformin to another oral hypoglycemic. Job ID: [id number]
[2020-02-18] MEDS: Gabapentin 300 MG CAP PO SCH ×2 (08:40→20:51)
[2020-02-18] MEDS: Amlodipine 5 MG TAB PO SCH (08:41)
[2020-02-18] MEDS: Chlorthalidone 25 MG TAB PO SCH (08:42)
[2020-02-18] MEDS: Aspirin 325 MG TAB PO SCH (08:43)
[2020-02-18] MEDS: Clopidogrel Bisulfate 75 MG TAB PO SCH (08:43)
[2020-02-18] MEDS: Famotidine 20 MG TAB PO SCH ×2 (08:43→20:52)
[2020-02-18] MEDS: hydrALAZINE 25 MG TAB PO SCH ×2 (08:44→20:52)
--- NOTE | 2020-02-18 13:31 | PRG ---
DATE OF SERVICE: 02/18/2020 SUBJECTIVE: Mr. Leger is resting in bed. He just finished his lunch. He apparently walked all the way around the nurse's station. He states that he is feeling stronger. He is able to get out of bed without using his walker. He is hoping to go home soon. OBJECTIVE: VITAL SIGNS: He is afebrile. Heart rate 99, respirations 18, oxygen saturation 96% on room air, blood pressure 132/76. CARDIOVASCULAR: S1, S2 plus. RESPIRATORY: Normal vesicular breath sounds. ABDOMEN: Soft, nontender. Bowel sounds heard in all quadrants. EXTREMITIES: Without cyanosis or clubbing. CENTRAL NERVOUS SYSTEM: Generalized weakness, otherwise nonfocal. IMPRESSION: 1. Recent COVID-19 infection. 2. Diabetes mellitus type 2, new onset, likely due to steroid use. 3. Polymyalgia rheumatica. 4. Coronary artery disease. 5. Peripheral vascular disease. 6. Lumbar radiculopathy. PLAN: 1. Continue current medications. 2. 1800-calorie heart healthy ADA diet. 3. Accu-Cheks with sliding scale coverage. 4. DVT prophylaxis with PlexiPulses as he is more active. 5. Decubitus precautions. 6. Stress ulcer prophylaxis. 7. Monitor polymyalgia rheumatica. 8. Continue therapy. 9. Routine laboratory values. 10. Await case conference. 11. No family at bedside. Job ID: [id number]
[2020-02-19] MEDS: Cilostazol 100 MG TAB PO SCH ×2 (07:43→17:14)
[2020-02-19] MEDS: Aspirin 325 MG TAB PO SCH (09:25)
[2020-02-19] MEDS: Gabapentin 300 MG CAP PO SCH ×2 (09:25→20:52)
[2020-02-19] MEDS: Clopidogrel Bisulfate 75 MG TAB PO SCH (09:26)
[2020-02-19] MEDS: Amlodipine 5 MG TAB PO SCH (09:27)
[2020-02-19] MEDS: Famotidine 20 MG TAB PO SCH ×2 (09:27→20:52)
[2020-02-19] MEDS: Chlorthalidone 25 MG TAB PO SCH (09:28)
[2020-02-19] MEDS: hydrALAZINE 25 MG TAB PO SCH ×2 (09:29→20:52)
--- NOTE | 2020-02-19 13:36 | PRG ---
DATE OF SERVICE: 02/19/2020 SUBJECTIVE: Mr. Leger is resting in bed. He apparently completed all of his sessions of therapy this morning. He is happy with his progress. OBJECTIVE: VITAL SIGNS: He is afebrile. Heart rate 113, respirations 20, oxygen saturation 93% on room air, blood pressure 134/72. CARDIOVASCULAR SYSTEM: S1 and S2 plus. RESPIRATORY SYSTEM: Normal vesicular breath sounds. ABDOMEN: Soft, nontender. Bowel sounds heard in all quadrants. EXTREMITIES: Without cyanosis or clubbing. CENTRAL NERVOUS SYSTEM: Generalized weakness, otherwise nonfocal. IMPRESSION: 1. Recent COVID-19 infection. 2. Coronary artery disease. 3. Peripheral vascular disease. 4. Diabetes mellitus type 2, due to steroids. 5. Low back pain. 6. Polymyalgia rheumatica. PLAN: 1. Continue current medications. 2. 1800 calorie heart healthy ADA diet. 3. Accu-Cheks with sliding scale coverage. 4. Physical therapy. 5. Routine laboratory values. 6. Discussed with the patient in detail. All questions answered. Reviewed case conference notes and they recommend the patient continue therapy here at least for the next few days. Job ID: [id number]
[2020-02-20] MEDS: Clopidogrel Bisulfate 75 MG TAB PO SCH (08:16)
[2020-02-20] MEDS: Famotidine 20 MG TAB PO SCH ×2 (08:16→20:03)
[2020-02-20] MEDS: Gabapentin 300 MG CAP PO SCH ×2 (08:16→20:03)
[2020-02-20] MEDS: Aspirin 325 MG TAB PO SCH (08:16)
[2020-02-20] MEDS: Cilostazol 100 MG TAB PO SCH ×2 (08:18→15:49)
[2020-02-20] MEDS: Chlorthalidone 25 MG TAB PO SCH (08:20)
[2020-02-20] MEDS: hydrALAZINE 25 MG TAB PO SCH ×2 (08:20→20:03)
[2020-02-20] MEDS: Amlodipine 5 MG TAB PO SCH (08:21)
[2020-02-20] MEDS ORDERED: traMADol HCl 50 MG TAB PO PRN (13:14)
--- NOTE | 2020-02-20 13:45 | PRG ---
DATE OF SERVICE: 02/20/2020 SUBJECTIVE: Mr. Leger is doing well. He apparently is participating with therapy, but his endurance is low. They have noticed episodes of orthostatic hypotension, and advised him to use knee high CRISTELA hose. He has been off his metformin and his prednisone and he is not showing any signs of any polymyalgia flare up at present. His blood sugars also much improved at 141, 127 and 151, and plan is to just monitor his blood sugars with him, staying off the metformin since he is not on the steroids anymore. OBJECTIVE: VITAL SIGNS: He is afebrile. Heart rate 81, respirations 18, oxygen saturation 96% on room air, blood pressure 136/74. CARDIOVASCULAR SYSTEM: S1, S2 plus. RESPIRATORY SYSTEM: Normal vesicular breath sounds. ABDOMEN: Soft, nontender. Bowel sounds heard in all quadrants. EXTREMITIES: Without cyanosis or clubbing. CENTRAL NERVOUS SYSTEM: Generalized weakness, otherwise nonfocal. IMPRESSION: 1. Steroid-induced hyperglycemia/diabetes mellitus. 2. Polymyalgia rheumatica, in remission at present. 3. Coronary artery disease. 4. Peripheral vascular disease. 5. Lumbar radiculopathy. 6. Hypokalemia, which has been replaced. 7. Deconditioning. PLAN: 1. Continue current medications. 2. 1800-calorie heart healthy ADA diet. 3. Accu-Cheks with sliding scale coverage. 4. Keep him off prednisone and metformin unless he shows any flare up of polymyalgia. 5. Continue physical therapy. 6. Routine laboratory checks with CBC, BMP in the morning. 7. Dr. Kevin on-call starting this evening. Job ID: [id number]
[2020-02-21 05:44] LABS: #Basophils 0.1 thou/uL (0.0-0.2); #Eosinphils 0.1 thou/uL (0.0-0.7); #Lymphocytes 1.3 thou/uL (1.20-3.40); #Monocytes 0.6 thou/uL (0.11-0.59); #Neutrophils 4.2 thou/uL (1.40-6.50); %Basophils 1.3 % (0.0-1.0); %Eosinophils 1.5 % (0.0-10.0); %Lymphocytes 20.5 % (21.0-51.0); %Monocytes 8.9 % (0.0-10.0); %Neutrophils 67.8 % (42.0-75.0); Hemoglobin 12.3 g/dL (14.0-18.0); Mean Corpuscular Volume 88.9 fL (78.0-98.0); Mean Platelet Volume 6.2 fL (7.4-10.4); Platelet Count 237 thou/uL (130-400); RBC Distribution Width 11.6 % (11.5-14.5); Red Blood Cell (RBC) Count 3.84 mill/uL (4.70-6.10); White Blood Cell (WBC) Count 6.3 thou/uL (4.8-10.8)
[2020-02-21 05:59] LABS: Anion Gap 14 mmol/L (10-20); BUN (Urea Nitrogen) 15 mg/dL (8.4-25.7); Calc. Creatinine Clearance 85 mL/min (70-130); Carbon Dioxide 23 mmol/L (23-31); Chloride 102 mmol/L (98-107); Glucose 114 mg/dL (83-110); Sodium 136 mmol/L (136-145)
[2020-02-21 06:09] LABS: Potassium 2.5 mmol/L (3.5-5.1)
[2020-02-21] MEDS: Aspirin 325 MG TAB PO SCH (08:21)
[2020-02-21] MEDS: Clopidogrel Bisulfate 75 MG TAB PO SCH (08:22)
[2020-02-21] MEDS: Amlodipine 5 MG TAB PO SCH (08:22)
[2020-02-21] MEDS: Cilostazol 100 MG TAB PO SCH ×2 (08:22→17:18)
[2020-02-21] MEDS: Gabapentin 300 MG CAP PO SCH ×2 (08:23→21:31)
[2020-02-21] MEDS: hydrALAZINE 25 MG TAB PO SCH ×2 (08:23→21:32)
[2020-02-21] MEDS: Famotidine 20 MG TAB PO SCH ×2 (08:24→21:32)
[2020-02-21] MEDS: Potassium Chloride 20 MEQ TAB PO SCH ×2 (08:24→17:18)
[2020-02-21] MEDS: Chlorthalidone 25 MG TAB PO SCH (08:24)
[2020-02-21] MEDS: HumaLOG 300 UNITS/3 ML VIAL SC PRN (11:50)
[2020-02-22] MEDS: Potassium Chloride 20 MEQ TAB PO SCH (08:05)
[2020-02-22] MEDS: Clopidogrel Bisulfate 75 MG TAB PO SCH (08:05)
[2020-02-22] MEDS: Amlodipine 5 MG TAB PO SCH (08:06)
[2020-02-22] MEDS: Cilostazol 100 MG TAB PO SCH (08:06)
[2020-02-22] MEDS: Aspirin 325 MG TAB PO SCH (08:06)
[2020-02-22] MEDS: Gabapentin 300 MG CAP PO SCH (08:07)
[2020-02-22] MEDS: Famotidine 20 MG TAB PO SCH (08:08)
[2020-02-22] MEDS: hydrALAZINE 25 MG TAB PO SCH (08:08)
[2020-02-22] MEDS: Chlorthalidone 25 MG TAB PO SCH (08:09)
--- NOTE | 2020-02-22 08:44 | PRG ---
DATE OF SERVICE: 02/21/2020 SUBJECTIVE: The patient is lying in bed, visiting with family. He has been working with therapy and is feeling somewhat better but still feels not stable to be discharged home. Family agrees with his therapy. OBJECTIVE: Shows temperature 97.6, pulse 97, respirations 20, O2 saturations 95% on room air, blood pressure 123/74. Accu-Cheks are stable from 116 to 193. Sodium 136, potassium has decreased to 2.5, chloride 102, bicarb 23, BUN 15, creatinine 0.9. White count 6300, hematocrit 34, hemoglobin 12.3. PHYSICAL EXAMINATION: LUNGS: Clear. CARDIAC: Showed regular rhythm. ABDOMEN: Soft, nontender. ASSESSMENT: 1. COVID-19 infection with persistent malaise. No respiratory distress. Cooperating with therapy. 2. New onset of hypokalemia, most likely related to chlorthalidone, will be discontinued. He will be started on K-Dur at 20 mEq twice daily. 3. Hypertension, well controlled. We will monitor closely off chlorthalidone and only on hydralazine and amlodipine. 4. Type 2 diabetes, controlled to goal. Good compliance to diet and medications in the hospital. PLAN: 1. K-Dur 20 mEq twice daily. 2. Discontinue chlorthalidone. 3. Monitor vital signs closely with therapy. 4. Continue PT/OT. 5. Continue Accu-Cheks to monitor and titrate and control diabetes. 6. Repeat basic metabolic profile in the a.m. Job ID: [id number]
[2020-02-22 10:20] LABS: Anion Gap 14 mmol/L (10-20); BUN (Urea Nitrogen) 13 mg/dL (8.4-25.7); Calc. Creatinine Clearance 74 mL/min (70-130); Calcium 8.3 mg/dL (7.8-10.44); Carbon Dioxide 22 mmol/L (23-31); Chloride 102 mmol/L (98-107); Glucose 160 mg/dL (83-110); Sodium 135 mmol/L (136-145)
[2020-02-22 10:24] LABS: Potassium 2.9 mmol/L (3.5-5.1)
--- NOTE | 2020-02-22 11:37 | PRG ---
DATE OF SERVICE: 02/22/2020 SUBJECTIVE: Patient feels well, lying in bed, but did become hypotensive and tachycardic, stay with therapy. He had . No chest pain, fever, chills, or cough. OBJECTIVE: LUNGS: Show a few crackles in the bases. CARDIAC: Shows regular rhythm. ABDOMEN: Soft and nontender. SKIN/EXTREMITIES: Showed no edema, clubbing, or cyanosis, VITAL SIGNS: O2 sats 94% on room air, pulse 106, blood pressure 119/77. ASSESSMENT: 1. Persistent exertional tachycardia and hypotension, possibly due to deconditioning, but we will get CBC, chest x-ray, and comp met. 2. Hypokalemia, on supplemental treatment with K-Dur 20 mEq twice daily. We will repeat level today. 3. Type 2 diabetes, controlled to goal. 4. Hypotension. We will discontinue chlorthalidone as could be causing hypotension and hypokalemia. Job ID: [id number]
[2020-02-22 12:48] LABS: #Basophils 0.1 thou/uL (0.0-0.2); #Eosinphils 0.1 thou/uL (0.0-0.7); #Lymphocytes 1.5 thou/uL (1.20-3.40); #Monocytes 0.8 thou/uL (0.11-0.59); #Neutrophils 6.3 thou/uL (1.40-6.50); %Basophils 0.9 % (0.0-1.0); %Eosinophils 1.1 % (0.0-10.0); %Lymphocytes 17.3 % (21.0-51.0); %Monocytes 8.9 % (0.0-10.0); %Neutrophils 71.8 % (42.0-75.0); Mean Corpuscular HGB CONC 34.1 g/dL (32.0-36.0); Platelet Count 290 thou/uL (130-400); RBC Distribution Width 12.2 % (11.5-14.5); White Blood Cell (WBC) Count 8.8 thou/uL (4.8-10.8)
[2020-02-22 13:06] LABS: AST (SGOT) 17 U/L (5-34); Alkaline Phosphatase 90 U/L (40-110); Bilirubin, Total 0.7 mg/dL (0.2-1.2); Globulin 2.5 g/dL (2.4-3.5); Protein, Total 5.5 g/dL (5.8-8.1)
[2020-02-22 13:13] LABS: ALT (SGPT) 11 U/L (8-55)
[2020-02-22 13:24] LABS: Sodium 135 mmol/L (136-145)
[2020-02-22 13:25] LABS: Anion Gap 14 mmol/L (10-20); Carbon Dioxide 22 mmol/L (23-31); Chloride 102 mmol/L (98-107); Potassium 2.9 mmol/L (3.5-5.1)
[2020-02-22 13:26] LABS: BUN (Urea Nitrogen) 13 mg/dL (8.4-25.7); Calc. Creatinine Clearance 74 mL/min (70-130); Calcium 8.3 mg/dL (7.8-10.44); Glucose 106 mg/dL (83-110)
[2020-02-23] MEDS: Gabapentin 300 MG CAP PO SCH ×3 (06:44→19:43)
[2020-02-23] MEDS: hydrALAZINE 25 MG TAB PO SCH ×3 (06:45→19:43)
[2020-02-23] MEDS: Famotidine 20 MG TAB PO SCH ×3 (06:46→19:43)
[2020-02-23] MEDS: Amlodipine 5 MG TAB PO SCH (08:16)
[2020-02-23] MEDS: Clopidogrel Bisulfate 75 MG TAB PO SCH (08:16)
[2020-02-23] MEDS: Potassium Chloride 20 MEQ TAB PO SCH ×3 (08:17→17:19)
[2020-02-23] MEDS: Aspirin 325 MG TAB PO SCH (08:22)
--- NOTE | 2020-02-23 10:31 | RAD ---
RADIOGRAPH CHEST 1 VIEW: DATE: 02/23/2020 TIME: 10:22 AM HISTORY: COVID-19 +74-year-old male with hypotension COMPARISON: 02/12/2020 FINDINGS: Mild faint infiltrates at left lower lung zone and left perihilar mid lung zone, all appear similar t o prior study. No consolidation. No new infiltrate identified. Signs of previous CABG. No cardiomegaly or pneumothorax. No interval change. IMPRESSION: 1) mild left-sided infiltrates. 2) no interval change
[2020-02-23 11:37] LABS: Anion Gap 14 mmol/L (10-20); BUN (Urea Nitrogen) 15 mg/dL (8.4-25.7); Calc. Creatinine Clearance 69 mL/min (70-130); Calcium 8.2 mg/dL (7.8-10.44); Carbon Dioxide 23 mmol/L (23-31); Chloride 102 mmol/L (98-107); Glucose 190 mg/dL (83-110); Potassium 3.1 mmol/L (3.5-5.1); Sodium 136 mmol/L (136-145)
[2020-02-23] MEDS: HumaLOG 300 UNITS/3 ML VIAL SC PRN (13:13)
[2020-02-23] MEDS: Cilostazol 100 MG TAB PO SCH ×3 (14:09→17:19)
[2020-02-23] MEDS: Acetaminophen 325 MG TAB PO PRN (19:42)
[2020-02-24 06:03] LABS: Anion Gap 12 mmol/L (10-20); BUN (Urea Nitrogen) 14 mg/dL (8.4-25.7); Calc. Creatinine Clearance 89 mL/min (70-130); Calcium 8.3 mg/dL (7.8-10.44); Carbon Dioxide 24 mmol/L (23-31); Chloride 105 mmol/L (98-107); Glucose 109 mg/dL (83-110); Sodium 138 mmol/L (136-145)
[2020-02-24] MEDS ORDERED: predniSONE 10 MG TAB PO SCH (08:00)
[2020-02-24] MEDS: Cilostazol 100 MG TAB PO SCH ×2 (08:08→16:48)
[2020-02-24] MEDS: predniSONE 20 MG TAB PO SCH (08:10)
[2020-02-24] MEDS: Gabapentin 300 MG CAP PO SCH ×2 (08:10→19:51)
[2020-02-24] MEDS: Potassium Chloride 20 MEQ TAB PO SCH ×2 (08:10→16:49)
[2020-02-24] MEDS: hydrALAZINE 25 MG TAB PO SCH ×2 (08:12→19:51)
[2020-02-24] MEDS: Famotidine 20 MG TAB PO SCH ×2 (08:12→19:50)
[2020-02-24] MEDS: Aspirin 325 MG TAB PO SCH (08:12)
[2020-02-24] MEDS: Amlodipine 5 MG TAB PO SCH (08:13)
[2020-02-24] MEDS: Clopidogrel Bisulfate 75 MG TAB PO SCH (08:14)
[2020-02-24] MEDS: HumaLOG 300 UNITS/3 ML VIAL SC PRN ×2 (12:22→17:45)
[2020-02-24 15:52] VITALS: BMI 29.7
[2020-02-25] MEDS: Acetaminophen 325 MG TAB PO PRN (04:03)
[2020-02-25 05:58] LABS: Anion Gap 13 mmol/L (10-20); BUN (Urea Nitrogen) 18 mg/dL (8.4-25.7); Calc. Creatinine Clearance 89 mL/min (70-130); Calcium 8.3 mg/dL (7.8-10.44); Carbon Dioxide 22 mmol/L (23-31); Chloride 109 mmol/L (98-107); Glucose 138 mg/dL (83-110); Potassium 3.6 mmol/L (3.5-5.1); Sodium 140 mmol/L (136-145)
[2020-02-25] MEDS: Potassium Chloride 20 MEQ TAB PO SCH ×2 (07:55→17:28)
[2020-02-25] MEDS: Gabapentin 300 MG CAP PO SCH ×2 (07:56→21:13)
[2020-02-25] MEDS: Aspirin 325 MG TAB PO SCH (07:57)
[2020-02-25] MEDS: Cilostazol 100 MG TAB PO SCH ×2 (07:58→17:27)
[2020-02-25] MEDS: Clopidogrel Bisulfate 75 MG TAB PO SCH (08:02)
[2020-02-25] MEDS: predniSONE 20 MG TAB PO SCH (08:03)
[2020-02-25] MEDS: Famotidine 20 MG TAB PO SCH ×2 (08:03→21:14)
[2020-02-25] MEDS: hydrALAZINE 25 MG TAB PO SCH ×2 (08:03→21:14)
[2020-02-25] MEDS: Amlodipine 5 MG TAB PO SCH (09:21)
[2020-02-25] MEDS: HumaLOG 300 UNITS/3 ML VIAL SC PRN ×2 (12:09→17:28)
[2020-02-26] MEDS: Aspirin 325 MG TAB PO SCH (08:31)
[2020-02-26] MEDS: hydrALAZINE 25 MG TAB PO SCH ×2 (08:31→20:34)
[2020-02-26] MEDS: Cilostazol 100 MG TAB PO SCH ×2 (08:31→16:21)
[2020-02-26] MEDS: Gabapentin 300 MG CAP PO SCH ×2 (08:31→20:35)
[2020-02-26] MEDS: Potassium Chloride 20 MEQ TAB PO SCH ×2 (08:31→16:21)
[2020-02-26] MEDS: predniSONE 20 MG TAB PO SCH (08:32)
[2020-02-26] MEDS: Famotidine 20 MG TAB PO SCH ×2 (08:32→20:35)
[2020-02-26] MEDS: Amlodipine 5 MG TAB PO SCH (08:33)
[2020-02-26] MEDS: Clopidogrel Bisulfate 75 MG TAB PO SCH (08:34)
[2020-02-26] MEDS: HumaLOG 300 UNITS/3 ML VIAL SC PRN (17:42)
--- NOTE | 2020-02-26 20:40 | PRG ---
DATE OF SERVICE: 02/23/2020 SUBJECTIVE: Patient still feels weak by taking potassium, is eating better. is in the room and states that he needs to be on his prednisone, which was stopped at the other hospital. OBJECTIVE: VITAL SIGNS: Shows temperature 97.6, pulse 85, respirations 20, O2 sats 97% on room air, blood pressure is 141/75. LUNGS: Clear. CARDIAC: Showed regular rhythm. ABDOMEN: Soft and nontender. LABORATORY DATA: White count is 8800, hematocrit 38, hemoglobin 13, sodium 136, potassium 3.1, chloride 102, bicarb 23, BUN 15, creatinine 1.11, GFR 64. ASSESSMENT: 1. Coronavirus disease 2019 pneumonia, resolved with persistent deconditioning. 2. Polymyalgia rheumatica, possibly contributing to deconditioning. 3. Type 2 diabetes, only fair control on sliding scale as metformin was discontinued because of nausea. PLAN: 1. Start prednisone 10 mg in the morning. 2. Discontinue metformin tomorrow. 3. Continue sliding scale to control diabetes. Job ID: [id number]
--- NOTE | 2020-02-26 21:06 | PRG ---
DATE OF SERVICE: 02/24/2020 SUBJECTIVE: The patient feels better, working in the room with family, increased appetite. OBJECTIVE: VITAL SIGNS: Shows temperature 97.5, pulse 86, respirations 18, O2 saturation is 95% on room air, blood pressure 146/82. LABORATORY DATA: Sodium 138, potassium 3.0, chloride 105, bicarb 24, BUN 14, creatinine 0.86. ASSESSMENT: 1. Persistent hypokalemia. We will increase potassium to 20 mEq twice daily. 2. Polymyalgia rheumatica with initial dose of steroid 10 mg daily with possible slight improvement already. 3. Coronavirus disease 2019 pneumonia resolved. 4. Severe deconditioning with inability to work with therapy. 5. Type 2 diabetes, only fair control on sliding scale. We will continue to monitor. PLAN: 1. Continue PT, OT in the a.m. 2. Continue prednisone 10 mg daily. 3. Continue KCl 20 mEq twice daily[address] 4. Dr. Calero back tonight. 5. Continue Accu-Cheks to monitor and titrate and control diabetes. Job ID: [id number]
[2020-02-27] MEDS: Gabapentin 300 MG CAP PO SCH ×2 (08:02→21:02)
[2020-02-27] MEDS: Clopidogrel Bisulfate 75 MG TAB PO SCH (08:03)
[2020-02-27] MEDS: Cilostazol 100 MG TAB PO SCH ×2 (08:03→17:11)
[2020-02-27] MEDS: Potassium Chloride 20 MEQ TAB PO SCH ×2 (08:03→17:11)
[2020-02-27] MEDS: Aspirin 325 MG TAB PO SCH (08:04)
[2020-02-27] MEDS: hydrALAZINE 25 MG TAB PO SCH ×2 (08:04→21:02)
[2020-02-27] MEDS: Amlodipine 5 MG TAB PO SCH (08:06)
[2020-02-27] MEDS: Famotidine 20 MG TAB PO SCH ×2 (08:06→21:02)
[2020-02-27] MEDS: predniSONE 20 MG TAB PO SCH (08:06)
--- NOTE | 2020-02-27 12:42 | PRG ---
DATE OF SERVICE: 02/26/2020 SUBJECTIVE: Mr. Leger is doing the same. Denies any complaints, he is getting stronger. He is on prednisone, I am not sure why. Patient states that he has not noticed any stiffness. I will check with Dr. Kevin as he started it on Tuesday. I do not see a progress note. OBJECTIVE: VITAL SIGNS: He is afebrile. Heart rate is 77, respirations 20, oxygen saturation 97% on room air, blood pressure 153/88. CARDIOVASCULAR: S1, S2 plus. RESPIRATORY: Normal vesicular breath sounds. ABDOMEN: Soft, nontender. Bowel sounds in all quadrants. EXTREMITIES: Without cyanosis, clubbing. CENTRAL NERVOUS SYSTEM: Improving deconditioning. IMPRESSION: 1. Resolving COVID-19 infection. 2. Polymyalgia rheumatica, doing well without any steroids, but apparently his wanted him to be on some steroids and so Dr. Kevin started him on 10 mg. I will check with Dr. Kevin and if he did not notice any signs of PMR flare up, I would reduce it to 5 mg. I did inform the patient about his blood sugars and his diabetes directly related to his steroids. 3. Coronary artery disease. 4. Peripheral vascular disease. 5. Lumbar radiculopathy. 6. Improving deconditioning. PLAN: 1. Continue current medications. 2. Nutritional support. 3. Check with Dr. Kevin on the reason for prednisone. 4. 1800-calorie heart healthy ADA diet. 5. Discharge planning. 6. DVT prophylaxis. 7. Outpatient followup with Rheumatology as well as Dr. Jessica. Job ID: [id number]
--- NOTE | 2020-02-27 12:43 | PRG ---
DATE OF SERVICE: 02/27/2020 SUBJECTIVE: Mr. Leger is doing well. He is getting stronger. Therapy has deemed him stable for discharge to home tomorrow with outpatient therapy. They recommend him having a rolling walker. He apparently is at high risk for falls without the help of a walker. The patient apparently has been using the walker here and doing well. Consider this note as a [id number] documentation for his rolling walker. I also spoke with Dr. Kevin and he said the only reason he started him on prednisone was that his was insistent that he be on prednisone 10 mg, otherwise he will be unable to function, although from the therapy notes and everything, the patient has been doing just fine, so I told the patient that I am going to reduce the dose to 5 mg since he has been having increased blood sugars while on the prednisone and is directly related. He is not on any oral hypoglycemic agents at present. OBJECTIVE: VITAL SIGNS: He is afebrile. Heart rate 94, respirations 18, oxygen saturation 96% on room air, blood pressure 131/73. CARDIOVASCULAR SYSTEM: S1 and S2 plus. RESPIRATORY SYSTEM: Normal vesicular breath sounds. ABDOMEN: Soft, nontender. Bowel sounds heard in all quadrants. EXTREMITIES: Without cyanosis or clubbing. CENTRAL NERVOUS SYSTEM: Generalized weakness. LABORATORY DATA: Blood sugars are 146, 171, 214, 88, and 150. IMPRESSION: 1. Hyperglycemia with possible diabetes mellitus since his hemoglobin A1c was more than 8. 2. Hypertension. 3. Dyslipidemia. 4. Peripheral vascular disease. 5. Lumbar radiculopathy. 6. Coronary artery disease. 7. Polymyalgia rheumatica. 8. Resolved COVID-19 infection and improving deconditioning. PLAN: 1. Continue current medications, but reduce prednisone to 5 mg. 2. Continue other medications. 3. 1800-calorie heart healthy ADA diet. 4. Resume metformin 500 mg once daily. 5. Orders signed for outpatient therapy. 6. Order written for rolling walker. 7. Discussed with the patient in detail. No family at bedside. Job ID: [id number]
[2020-02-27] MEDS ORDERED: metFORMIN XR 500 MG TAB PO SCH (13:00)
[2020-02-27] MEDS: HumaLOG 300 UNITS/3 ML VIAL SC PRN (16:39)
[2020-02-28] MEDS ORDERED: metFORMIN XR 500 MG TAB PO SCH (08:00)
[2020-02-28] MEDS ORDERED: predniSONE 5 MG TAB PO SCH (08:00)
[2020-02-28] MEDS: Potassium Chloride 20 MEQ TAB PO SCH (09:20)
[2020-02-28] MEDS: Famotidine 20 MG TAB PO SCH (09:20)
[2020-02-28] MEDS: Clopidogrel Bisulfate 75 MG TAB PO SCH (09:20)
[2020-02-28] MEDS: Aspirin 325 MG TAB PO SCH (09:21)
[2020-02-28] MEDS: Gabapentin 300 MG CAP PO SCH (09:21)
[2020-02-28] MEDS: Amlodipine 5 MG TAB PO SCH (09:22)
[2020-02-28] MEDS: Cilostazol 100 MG TAB PO SCH (09:22)
[2020-02-28] MEDS: hydrALAZINE 25 MG TAB PO SCH (09:23)
[2020-02-28 09:25] VITALS: TEMP 97.3
--- NOTE | 2020-02-28 13:06 | DIS ---
DATE OF ADMISSION: 02/16/2020 DATE OF DISCHARGE: 02/28/2020 PRINCIPAL DIAGNOSIS: Significant deconditioning from recent COVID infection. SECONDARY DIAGNOSES: 1. Coronary artery disease. 2. Lumbar radiculopathy. 3. Peripheral vascular disease. 4. Hypertension. 5. Dyslipidemia. 6. Steroid-induced diabetes mellitus. 7. Peripheral neuropathy. 8. Anxiety and depression. 9. Polymyalgia rheumatica. COMPLICATIONS: None. ADVERSE REACTIONS: None. PROCEDURES: None. CONSULTATIONS: Physical Therapy and Occupational Therapy. HOSPITAL COURSE: The patient was admitted on February 15 after being admitted to the hospital with altered mental status and confusion. He was found to be slightly hypoxemic and he did test positive for COVID on January 2020. He was admitted to the hospital for observation and he did well. Laboratory values remained stable and he was transferred here for therapy. He has done remarkably well. He has been ambulating without any issues. He has been able to get in and out of bed, but for some reason, his felt that he needed to be on steroids, so Dr. Kevin started him on 10 mg of prednisone. He was on high-dose steroids, which did result in him developing diabetes and berrios facies. I have cut it down to 5 mg and I had a long discussion with him and his daughter and I advised them that I really would like him to get off the prednisone if possible, so they are going to follow up in my office in a week and the plan is to taper him down by 1 mg every two weeks. I did restart him back on metformin 500 mg once daily since his blood sugars were back up over 200. He is also on potassium twice daily and we will also recheck that in a week and it may be related to the chlorthalidone. DISCHARGE PHYSICAL EXAMINATION: VITAL SIGNS: On the day of discharge, he is afebrile. Heart rate 94, respirations 20, oxygen saturation 96% on room air, blood pressure 158/85. CARDIOVASCULAR: S1, S2 plus. RESPIRATORY: Normal vesicular breath sounds. ABDOMEN: Soft, nontender. Bowel sounds heard in all quadrants. EXTREMITIES: Without cyanosis or clubbing. CENTRAL NERVOUS SYSTEM: Generalized weakness, but much improved. LABORATORY VALUES: His blood sugars are 150, 206, 98, 87, and 106. PLAN: Continue current medications. DISCHARGE MEDICATIONS: 1. Tylenol 650 q.6h p.r.n. 2. Norvasc 5 mg daily. 3. Aspirin 325 daily. 4. Pletal 50 mg b.i.d. 5. Plavix 75 mg daily. 6. Omeprazole 40 mg daily. 7. Neurontin 600 mg b.i.d. 8. Hydralazine 25 mg b.i.d. 9. Metformin 500 mg once with food. 10. Potassium 40 mEq b.i.d. 11. Prednisone 5 mg daily. 12. Zoloft 50 mg daily. 13. Tramadol 50 mg q.6h p.r.n. DISCHARGE INSTRUCTIONS: 1800-calorie heart-healthy ADA diet. Activity as tolerated. Outpatient PT and OT. Follow up in my office in a week and recheck BMP. The patient to do his Accu-Cheks as needed, prednisone 5 mg, and they are to call me with any questions or concerns. Prescriptions that he needed refills have been sent to [facility]. Total time spent on this discharge is 37 minutes. Discussed with the patient and daughter in detail. All questions answered. A prescription has also been written for a rolling walker. [id number] for rolling walker was dictated yesterday. For full details, please see chart. Job ID: [id number]
[2020-02-28 13:36] VITALS: BP 128/77
== END 2020-02-28 13:00 | disposition home or self-care (01) | DRG 947 ==
LOC: NAV ACUTE 15:49 → UNDOADMIN 15:49
PROVIDERS: ADMIT Internal Medicine; ATTEND Internal Medicine
DX: R53.1 Weakness (principal); U07.1 COVID-19; J12.82 Pneumonia due to coronavirus disease 2019; R53.81 Other malaise; M35.3 Polymyalgia rheumatica; I10 Essential (primary) hypertension; I25.10 Atherosclerotic heart disease of native coronary artery without angina pectoris; E78.5 Hyperlipidemia, unspecified; R63.0 Anorexia; E11.9 Type 2 diabetes mellitus without complications; M54.16 Radiculopathy, lumbar region; M54.5 Low back pain; T50.2X5A Adverse effect of carbonic-anhydrase inhibitors, benzothiadiazides and other diuretics, initial encounter; Y92.239 Unspecified place in hospital as the place of occurrence of the external cause; F41.9 Anxiety disorder, unspecified; F32.9 Major depressive disorder, single episode, unspecified; I73.9 Peripheral vascular disease, unspecified; Z88.8 Allergy status to other drugs, medicaments and biological substances; Z79.82 Long term (current) use of aspirin; Z95.1 Presence of aortocoronary bypass graft; Z79.899 Other long term (current) drug therapy; Z79.84 Long term (current) use of oral hypoglycemic drugs; Z82.49 Family history of ischemic heart disease and other diseases of the circulatory system; Z95.828 Presence of other vascular implants and grafts; Z68.29 Body mass index [BMI] 29.0-29.9, adult; E87.6 Hypokalemia; I95.1 Orthostatic hypotension; T38.0X5A Adverse effect of glucocorticoids and synthetic analogues, initial encounter
CPT/HCPCS: 36415; 36416; 71045; 80048; 80053; 83880; 85025; J7512

== ENCOUNTER 2020-03-10 17:02 | Emergency (ER) | payer MEDICARE ==
[~2020-03-10 17:02] MED LIST: Iopamidol 370 76% 100 ML VIAL ONE
[2020-03-10] MEDS ORDERED: Morphine 4 MG/ML VIAL ONE (17:20)
[2020-03-10 17:47] LABS: #Basophils 0.1 thou/uL (0.0-0.2); #Lymphocytes 1.8 thou/uL (1.20-3.40); #Neutrophils 13.5 thou/uL (1.40-6.50); %Basophils 0.4 % (0.0-1.0); %Eosinophils 0.1 % (0.0-10.0); %Lymphocytes 10.7 % (21.0-51.0); %Monocytes 6.2 % (0.0-10.0); %Neutrophils 82.6 % (42.0-75.0); Hemoglobin 13.7 g/dL (14.0-18.0); Mean Corpuscular HGB CONC 33.1 g/dL (32.0-36.0); Mean Corpuscular Hemoglobin 31.3 pg (27.0-31.0); Mean Corpuscular Volume 94.5 fL (78.0-98.0); Mean Platelet Volume 6.1 fL (7.4-10.4); Platelet Count 247 thou/uL (130-400); RBC Distribution Width 14.1 % (11.5-14.5); Red Blood Cell (RBC) Count 4.37 mill/uL (4.70-6.10); White Blood Cell (WBC) Count 16.4 thou/uL (4.8-10.8)
[2020-03-10 17:48] LABS: ALT (SGPT) 19 U/L (8-55); AST (SGOT) 19 U/L (5-34); Albumin 3.4 g/dL (3.4-4.8); Alkaline Phosphatase 82 U/L (40-110); Anion Gap 16 mmol/L (10-20); BUN (Urea Nitrogen) 19 mg/dL (8.4-25.7); Bilirubin, Total 0.5 mg/dL (0.2-1.2); Calc. Creatinine Clearance 0 mL/min (70-130); Calcium 8.1 mg/dL (7.8-10.44); Carbon Dioxide 20 mmol/L (23-31); Chloride 107 mmol/L (98-107); Globulin 2.3 g/dL (2.4-3.5); Glucose 146 mg/dL (83-110); Potassium 4.5 mmol/L (3.5-5.1); Protein, Total 5.7 g/dL (5.8-8.1); Sodium 138 mmol/L (136-145)
[2020-03-10] MEDS ORDERED: Bacitracin 1 PK ONE (17:57)
--- NOTE | 2020-03-10 18:07 | CT ---
Exam: Head CT without contrast HISTORY: Status post fall. Right facial abrasion. Pain. COMPARISON: 02/12/2020 FINDINGS: Hemorrhage: No intraparenchymal hemorrhage or extra-axial hematoma. Brain parenchyma: Cortical barrett-white matter differentiation is preserved. No mass effect or midline shift. Basilar cisterns are patent.There are chronic small vessel ischemic changes of the white matter. Ventricular system: Ventricles and sulci are patent and symmetric. Calvarium: Intact Scalp: There is a small right temporal scalp hematoma. Sinuses and mastoid air cells: Right maxillary sinus disease. IMPRESSION: 1. No intracranial post traumatic sequelae 2. Right temporal scalp hematoma.
--- NOTE | 2020-03-10 18:12 | CT ---
Exam: CT cervical spine without contrast HISTORY: Trauma. Pain. COMPARISON: 10/29/[address] FINDINGS: No craniocervical dissociation. Appropriate alignment of the lateral masses of C1 and C2. Intact odon toid process Appropriate alignment of the facets. Soft tissue neck structures: No mass, lymphadenopathy or hematoma. No prevertebral soft tissue swelli ng. Hypodensity in the right thyroid lobe, incompletely evaluated Upper mediastinum and lung apices: Chronic changes in the visualized lung parenchyma Central spinal canal: There are varying degrees of central canal stenosis and neural foraminal narrow ing on the basis of degenerative change. Technique does limit evaluation. Vertebral bodies: Cervical spine vertebral body height is maintained. No fracture. IMPRESSION: 1. No cervical spine fracture. 2. Right thyroid lobe hypodensity, incompletely. Patient has undergone a thyroid ultrasound 03/04/2019 . Please refer to that exam for further detail
--- NOTE | 2020-03-10 19:29 | CT ---
CT CHEST, ABDOMEN, AND PELVIS WITH IV CONTRAST: Indications: Fall with trauma, injury to chest and abdomen. Comparison: CT chest 02-12-2020; CT abdomen 10-12-2019 FINDINGS: There are chronic lung parenchymal findings which have a similar appearance to the 02-12-2020 exam. T here are patchy areas of ground glass type infiltrates bilaterally suspicious for Covid pneumonia. Th ere is a chronic cystic area in the left lung which is stable. Chronic interstitial and parenchymal c hanges in the lung bases appear stable. There is cardiomegaly with mild vascular congestion. Mediasti num is unremarkable. Old rib fractures involving the lateral right fifth and sixth ribs appear stable. No acute rib fractu re identified. There is deformity at the costrovertebral junction of the right 10th rib with prominen t hypertrophic change. This is a stable finding. A fixed diaphragmatic hernia is again noted and unch anged. Thoracic vertebrae maintain height and alignment without evidence of compression or vertebral body fr acture. IMPRESSION: 1. Bilateral lung infiltrates similar to the prior exam and chronic lung changes which are stable. 2. Old right sided rib fractures and deformities as described. No acute rib fracture identified. CT ABDOMEN AND PELVIS: The liver is unremarkable. The cyst in the caudate lobe is stable. Several small gallstones are again noted and were present previously. Mildly distended gallbladder. Spleen unremarkable. Fixed diaphrag matic hernia noted. Small bowel loops unremarkable. Colon unremarkable. Aorta shows atherosclerotic change with an aortic bifem graft which appears patent and unchanged. Vertebral bodies of the lumbar spine maintain height and alignment with degenerative changes. The pel vis appears intact. Degenerative changes at both hips. Kidneys and urinary tract unremarkable. IMPRESSION: 1. Cholelithiasis again noted. 2. Hepatic cyst is stable. 3. Fixed diaphragmatic hernia. 4. No acute intraabdominal injury identified. POS: AGW
== END 2020-03-10 18:58 | disposition home or self-care (01) ==
LOC: NAV ERS 17:02
DX: S20.211A Contusion of right front wall of thorax, initial encounter (principal); S00.83XA Contusion of other part of head, initial encounter; E78.5 Hyperlipidemia, unspecified; E78.00 Pure hypercholesterolemia, unspecified; I10 Essential (primary) hypertension; Z79.82 Long term (current) use of aspirin; Z79.899 Other long term (current) drug therapy; W01.10XA Fall on same level from slipping, tripping and stumbling with subsequent striking against unspecified object, initial encounter
CPT/HCPCS: 70450; 71260; 72125; 74177; 80053; 85025; 96374; J2270; Q9967

== ENCOUNTER 2020-03-12 10:07 | Outpatient (CLI) | payer MEDICARE ==
--- NOTE | 2020-03-12 10:25 | RAD ---
EXAM: Two views chest PROVIDED CLINICAL HISTORY: Persistent cough. History of Covid. 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 Cardiac silhouette and pulmonary vasculature a re within normal limits. Minimal increased interstitial and slight groundglass densities are seen in the region of the left midlung zone at the left lung base with minimal linear densities also again seen at the right lung base. Remote right-sided rib fractures are again seen. No significant interval change from prior study. IMPRESSION: Persistent and stable mild increase interstitial and mild patchy groundglass densities left midlung z one and left lung base with minimal linear densities right lung base. These findings are not specific for but can be seen with Covid pneumonia.
== END 2020-03-12 10:08 | disposition home or self-care (01) ==
LOC: NAV RAD 10:07
PROVIDERS: ATTEND Internal Medicine
DX: R05 Cough (principal); J98.4 Other disorders of lung; Z86.16 Personal history of COVID-19
CPT/HCPCS: 71046

== ENCOUNTER 2020-12-01 09:46 | Emergency (ER) | payer MEDICARE ==
[2020-12-01 10:58] LABS: #Basophils 0.1 thou/uL (0.0-0.2); #Neutrophils 7.2 thou/uL (1.40-6.50); %Basophils 1.1 % (0.0-1.0); %Eosinophils 0.5 % (0.0-10.0); %Lymphocytes 10.6 % (21.0-51.0); %Monocytes 11.1 % (0.0-10.0); %Neutrophils 76.8 % (42.0-75.0); Hemoglobin 15.8 g/dL (14.0-18.0); Mean Corpuscular HGB CONC 33.8 g/dL (32.0-36.0); Mean Corpuscular Hemoglobin 32.3 pg (27.0-31.0); Mean Corpuscular Volume 95.5 fL (78.0-98.0); Mean Platelet Volume 7.3 fL (7.4-10.4); Platelet Count 214 thou/uL (130-400); Red Blood Cell (RBC) Count 4.89 mill/uL (4.70-6.10); White Blood Cell (WBC) Count 9.3 thou/uL (4.8-10.8)
[2020-12-01 11:08] LABS: ALT (SGPT) 14 U/L (8-55); AST (SGOT) 16 U/L (5-34); Alkaline Phosphatase 85 U/L (40-110); Anion Gap 14 mmol/L (10-20); BUN (Urea Nitrogen) 13 mg/dL (8.4-25.7); Calc. Creatinine Clearance 0 mL/min (70-130); Calcium 9.5 mg/dL (7.8-10.44); Carbon Dioxide 25 mmol/L (23-31); Chloride 103 mmol/L (98-107); Globulin 2.9 g/dL (2.4-3.5); Glucose 152 mg/dL (83-110); Protein, Total 6.9 g/dL (5.8-8.1); Sodium 137 mmol/L (136-145)
[2020-12-01] MEDS ORDERED: methylPREDNISolone Acetate 40 mg/ml Vial ONE (11:20)
[2020-12-01 21:32] LABS: SARS-CoV-2 PCR by NAA Not Detected (NotDetected)
== END 2020-12-01 11:33 | disposition home or self-care (01) ==
LOC: NAV ERS 09:46
DX: J20.9 Acute bronchitis, unspecified (principal); Z20.822 Contact with and (suspected) exposure to COVID-19; Z79.899 Other long term (current) drug therapy; Z79.82 Long term (current) use of aspirin; Z79.52 Long term (current) use of systemic steroids; E78.5 Hyperlipidemia, unspecified; E78.00 Pure hypercholesterolemia, unspecified; I10 Essential (primary) hypertension
CPT/HCPCS: 71046; 80053; 85025; 87070; 87205; 87804 ×2; U0003; U0005; 96372; J2920

== ENCOUNTER 2020-12-07 10:39 | Emergency (ER) | payer MEDICARE ==
[2020-12-07] MEDS ORDERED: Bacitracin 1 PK ONE (11:06)
== END 2020-12-07 12:21 | disposition home or self-care (01) ==
LOC: NAV ERS 10:39
DX: S61.412A Laceration without foreign body of left hand, initial encounter (principal); S70.01XA Contusion of right hip, initial encounter; I25.10 Atherosclerotic heart disease of native coronary artery without angina pectoris; I71.6 Thoracoabdominal aortic aneurysm, without rupture; E78.5 Hyperlipidemia, unspecified; E78.00 Pure hypercholesterolemia, unspecified; I10 Essential (primary) hypertension; Z79.899 Other long term (current) drug therapy; Z79.82 Long term (current) use of aspirin; W55.22XA Struck by cow, initial encounter
CPT/HCPCS: 70450; 72125; 72192

== ENCOUNTER 2021-03-11 16:04 | Inpatient (IN) | payer MEDICARE ==
[2021-03-11] MEDS ORDERED: Ondansetron ODT 4 MG TAB PO PRN (18:59)
[2021-03-11] MEDS ORDERED: Senokot S 8.6-50 MG TAB PO PRN (18:59)
[2021-03-11] MEDS ORDERED: Dextrose 50% Abboject 50 ML SYRINGE SLOW IVP PRN (19:25)
[2021-03-11] MEDS: Gabapentin 300 MG CAP PO SCH (20:38)
[2021-03-11] MEDS: metFORMIN 500 MG TAB PO SCH (20:39)
[2021-03-11] MEDS: hydrALAZINE 25 MG TAB PO SCH (20:39)
[2021-03-11] MEDS: Famotidine 20 MG TAB PO SCH (20:39)
[2021-03-11] MEDS ORDERED: hydrALAZINE 25 MG TAB PO SCH (21:00)
[2021-03-12 06:36] LABS: Anion Gap 13 mmol/L (10-20); BUN (Urea Nitrogen) 24 mg/dL (8.4-25.7); Calc. Creatinine Clearance 73 mL/min (70-130); Calcium 8.9 mg/dL (7.8-10.44); Carbon Dioxide 21 mmol/L (23-31); Chloride 108 mmol/L (98-107); Glucose 112 mg/dL (83-110); Potassium 3.8 mmol/L (3.5-5.1); Sodium 138 mmol/L (136-145)
[2021-03-12 07:06] LABS: #Basophils 0.1 thou/uL (0.0-0.2); #Eosinphils 0.1 thou/uL (0.0-0.7); #Lymphocytes 1.8 thou/uL (1.20-3.40); #Monocytes 0.6 thou/uL (0.11-0.59); #Neutrophils 4.1 thou/uL (1.40-6.50); %Eosinophils 0.9 % (0.0-10.0); %Lymphocytes 27.3 % (21.0-51.0); %Monocytes 9.5 % (0.0-10.0); %Neutrophils 61.3 % (42.0-75.0); Hemoglobin 14.5 g/dL (14.0-18.0); Mean Corpuscular HGB CONC 34.7 g/dL (32.0-36.0); Mean Corpuscular Hemoglobin 31.9 pg (27.0-31.0); Mean Corpuscular Volume 92.2 fL (78.0-98.0); Mean Platelet Volume 6.9 fL (7.4-10.4); Platelet Count 243 thou/uL (130-400); RBC Distribution Width 11.6 % (11.5-14.5); Red Blood Cell (RBC) Count 4.55 mill/uL (4.70-6.10); White Blood Cell (WBC) Count 6.7 thou/uL (4.8-10.8)
[2021-03-12] MEDS: Potassium Chloride 20 MEQ TAB PO SCH ×2 (08:49→17:26)
[2021-03-12] MEDS: metFORMIN 500 MG TAB PO SCH ×2 (08:49→21:17)
[2021-03-12] MEDS: Gabapentin 300 MG CAP PO SCH ×2 (08:49→21:16)
[2021-03-12] MEDS: Famotidine 20 MG TAB PO SCH ×2 (08:49→21:17)
[2021-03-12] MEDS: predniSONE 20 MG TAB PO SCH (08:50)
[2021-03-12] MEDS: hydrALAZINE 25 MG TAB PO SCH ×3 (08:50→21:16)
[2021-03-12] MEDS: Aspirin Chewable 81 MG TAB PO SCH (08:51)
[2021-03-12] MEDS: Amlodipine 5 MG TAB PO SCH (08:51)
[2021-03-12] MEDS: Clopidogrel Bisulfate 75 MG TAB PO SCH (09:01)
[2021-03-12 11:29] LABS: Hemoglobin A1c 5.9 % (4.0-6.0)
[2021-03-12] MEDS: Acetaminophen 325 MG TAB PO PRN ×2 (12:19→21:20)
[2021-03-12] MEDS: HumaLOG 300 UNITS/3 ML VIAL SC PRN (17:27)
[2021-03-13] MEDS: Acetaminophen 325 MG TAB PO PRN (07:33)
[2021-03-13] MEDS: Potassium Chloride 20 MEQ TAB PO SCH ×2 (08:10→17:02)
[2021-03-13] MEDS: Amlodipine 5 MG TAB PO SCH (08:10)
[2021-03-13] MEDS: Aspirin Chewable 81 MG TAB PO SCH (08:11)
[2021-03-13] MEDS: Clopidogrel Bisulfate 75 MG TAB PO SCH (08:11)
[2021-03-13] MEDS: hydrALAZINE 25 MG TAB PO SCH ×3 (08:11→21:06)
[2021-03-13] MEDS: Famotidine 20 MG TAB PO SCH ×2 (08:11→21:06)
[2021-03-13] MEDS: Gabapentin 300 MG CAP PO SCH ×2 (08:12→21:06)
[2021-03-13] MEDS: predniSONE 20 MG TAB PO SCH (08:14)
[2021-03-13] MEDS: metFORMIN 500 MG TAB PO SCH ×2 (08:14→21:06)
[2021-03-13] MEDS ORDERED: Gabapentin 300 MG CAP PO SCH (11:45)
[2021-03-13] MEDS: HumaLOG 300 UNITS/3 ML VIAL SC PRN (16:59)
[2021-03-14] MEDS: Gabapentin 300 MG CAP PO SCH ×2 (07:50→21:12)
[2021-03-14] MEDS: Famotidine 20 MG TAB PO SCH ×2 (07:54→21:12)
[2021-03-14] MEDS: Aspirin Chewable 81 MG TAB PO SCH (07:54)
[2021-03-14] MEDS: metFORMIN 500 MG TAB PO SCH ×2 (07:54→21:12)
[2021-03-14] MEDS: Potassium Chloride 20 MEQ TAB PO SCH ×2 (07:54→17:38)
[2021-03-14] MEDS: Clopidogrel Bisulfate 75 MG TAB PO SCH (07:55)
[2021-03-14] MEDS: hydrALAZINE 25 MG TAB PO SCH ×3 (07:55→21:11)
[2021-03-14] MEDS: predniSONE 20 MG TAB PO SCH (07:56)
[2021-03-14] MEDS: Amlodipine 5 MG TAB PO SCH (07:56)
[2021-03-14] MEDS: traMADol HCl 50 MG TAB PO PRN ×2 (10:18→19:46)
[2021-03-14] MEDS ORDERED: Amlodipine 5 MG TAB PO SCH (10:45)
[2021-03-14] MEDS ORDERED: Ondansetron ODT 4 MG TAB SL PRN (13:15)
[2021-03-14] MEDS: HumaLOG 300 UNITS/3 ML VIAL SC PRN (17:38)
[2021-03-15] MEDS: Gabapentin 300 MG CAP PO SCH ×2 (07:44→21:33)
[2021-03-15] MEDS: Clopidogrel Bisulfate 75 MG TAB PO SCH (07:46)
[2021-03-15] MEDS: Amlodipine 10 MG TAB PO SCH (07:46)
[2021-03-15] MEDS: Potassium Chloride 20 MEQ TAB PO SCH ×2 (07:46→17:33)
[2021-03-15] MEDS: traMADol HCl 50 MG TAB PO PRN ×2 (07:47→21:35)
[2021-03-15] MEDS: Aspirin Chewable 81 MG TAB PO SCH (07:47)
[2021-03-15] MEDS: hydrALAZINE 25 MG TAB PO SCH ×3 (07:48→21:33)
[2021-03-15] MEDS: predniSONE 20 MG TAB PO SCH (07:48)
[2021-03-15] MEDS: Famotidine 20 MG TAB PO SCH ×2 (07:49→21:33)
[2021-03-15] MEDS: metFORMIN 500 MG TAB PO SCH ×2 (07:50→21:33)
[2021-03-15] MEDS: HumaLOG 300 UNITS/3 ML VIAL SC PRN ×3 (12:20→21:33)
[2021-03-16] MEDS: traMADol HCl 50 MG TAB PO PRN (06:10)
[2021-03-16] MEDS: Potassium Chloride 20 MEQ TAB PO SCH ×2 (07:45→17:46)
[2021-03-16] MEDS: Clopidogrel Bisulfate 75 MG TAB PO SCH (07:46)
[2021-03-16] MEDS: hydrALAZINE 25 MG TAB PO SCH ×3 (07:47→21:33)
[2021-03-16] MEDS: Acetaminophen 325 MG TAB PO PRN (07:47)
[2021-03-16] MEDS: Gabapentin 300 MG CAP PO SCH ×2 (07:48→21:32)
[2021-03-16] MEDS: predniSONE 20 MG TAB PO SCH (07:49)
[2021-03-16] MEDS: Famotidine 20 MG TAB PO SCH ×2 (07:49→21:33)
[2021-03-16] MEDS: Amlodipine 10 MG TAB PO SCH (07:49)
[2021-03-16] MEDS: Aspirin Chewable 81 MG TAB PO SCH (07:49)
[2021-03-16] MEDS: metFORMIN 500 MG TAB PO SCH ×2 (07:49→21:33)
[2021-03-16] MEDS: HumaLOG 300 UNITS/3 ML VIAL SC PRN (17:46)
[2021-03-16 19:25] LABS: SARS-CoV-2 PCR by NAA Not Detected (NotDetected)
[2021-03-17] MEDS: traMADol HCl 50 MG TAB PO PRN ×2 (05:54→11:56)
[2021-03-17] MEDS: Potassium Chloride 20 MEQ TAB PO SCH ×2 (08:25→17:15)
[2021-03-17] MEDS: Gabapentin 300 MG CAP PO SCH ×3 (08:26→21:19)
[2021-03-17] MEDS: Famotidine 20 MG TAB PO SCH ×2 (08:26→21:19)
[2021-03-17] MEDS: metFORMIN 500 MG TAB PO SCH ×2 (08:27→21:20)
[2021-03-17] MEDS: Amlodipine 10 MG TAB PO SCH (08:27)
[2021-03-17] MEDS: hydrALAZINE 25 MG TAB PO SCH ×3 (08:27→21:19)
[2021-03-17] MEDS: Clopidogrel Bisulfate 75 MG TAB PO SCH (08:27)
[2021-03-17] MEDS: Aspirin Chewable 81 MG TAB PO SCH (08:28)
[2021-03-17] MEDS: predniSONE 20 MG TAB PO SCH (08:28)
[2021-03-17] MEDS: HumaLOG 300 UNITS/3 ML VIAL SC PRN (17:15)
[2021-03-18] MEDS: Potassium Chloride 20 MEQ TAB PO SCH ×2 (09:24→17:39)
[2021-03-18] MEDS: Amlodipine 10 MG TAB PO SCH (09:24)
[2021-03-18] MEDS: metFORMIN 500 MG TAB PO SCH ×2 (09:25→20:47)
[2021-03-18] MEDS: Famotidine 20 MG TAB PO SCH ×2 (09:25→20:47)
[2021-03-18] MEDS: Gabapentin 300 MG CAP PO SCH ×3 (09:25→20:47)
[2021-03-18] MEDS: Clopidogrel Bisulfate 75 MG TAB PO SCH (09:25)
[2021-03-18] MEDS: Aspirin Chewable 81 MG TAB PO SCH (09:26)
[2021-03-18] MEDS: predniSONE 10 MG TAB PO SCH (09:26)
[2021-03-18] MEDS: hydrALAZINE 25 MG TAB PO SCH ×3 (09:26→20:47)
[2021-03-18] MEDS: traMADol HCl 50 MG TAB PO PRN (11:59)
[2021-03-19] MEDS: traMADol HCl 50 MG TAB PO PRN ×2 (04:47→11:58)
[2021-03-19] MEDS: Acetaminophen 325 MG TAB PO PRN (07:45)
[2021-03-19] MEDS: Potassium Chloride 20 MEQ TAB PO SCH ×2 (07:46→16:54)
[2021-03-19] MEDS: Aspirin Chewable 81 MG TAB PO SCH (07:46)
[2021-03-19] MEDS: Famotidine 20 MG TAB PO SCH ×2 (07:47→20:55)
[2021-03-19] MEDS: Gabapentin 300 MG CAP PO SCH ×3 (07:48→20:55)
[2021-03-19] MEDS: metFORMIN 500 MG TAB PO SCH ×2 (07:48→20:54)
[2021-03-19] MEDS: hydrALAZINE 25 MG TAB PO SCH ×3 (07:49→20:55)
[2021-03-19] MEDS: predniSONE 10 MG TAB PO SCH (07:49)
[2021-03-19] MEDS: Amlodipine 10 MG TAB PO SCH (07:50)
[2021-03-19] MEDS: Clopidogrel Bisulfate 75 MG TAB PO SCH (07:50)
[2021-03-20] MEDS: metFORMIN 500 MG TAB PO SCH ×2 (07:51→20:41)
[2021-03-20] MEDS: Clopidogrel Bisulfate 75 MG TAB PO SCH (07:52)
[2021-03-20] MEDS: Gabapentin 300 MG CAP PO SCH ×3 (07:52→20:40)
[2021-03-20] MEDS: Potassium Chloride 20 MEQ TAB PO SCH ×2 (07:52→16:54)
[2021-03-20] MEDS: Aspirin Chewable 81 MG TAB PO SCH (07:53)
[2021-03-20] MEDS: Famotidine 20 MG TAB PO SCH ×2 (07:53→20:40)
[2021-03-20] MEDS: hydrALAZINE 25 MG TAB PO SCH ×3 (07:54→20:40)
[2021-03-20] MEDS: predniSONE 10 MG TAB PO SCH (07:55)
[2021-03-20] MEDS: Amlodipine 10 MG TAB PO SCH (07:55)
[2021-03-20] MEDS: HumaLOG 300 UNITS/3 ML VIAL SC PRN (17:29)
[2021-03-21] MEDS: traMADol HCl 50 MG TAB PO PRN ×3 (06:03→20:31)
[2021-03-21] MEDS: hydrALAZINE 25 MG TAB PO SCH ×3 (08:44→20:32)
[2021-03-21] MEDS: Aspirin Chewable 81 MG TAB PO SCH (08:44)
[2021-03-21] MEDS: predniSONE 10 MG TAB PO SCH (08:44)
[2021-03-21] MEDS: Clopidogrel Bisulfate 75 MG TAB PO SCH (08:45)
[2021-03-21] MEDS: Famotidine 20 MG TAB PO SCH ×2 (08:45→20:32)
[2021-03-21] MEDS: Amlodipine 10 MG TAB PO SCH (08:45)
[2021-03-21] MEDS: metFORMIN 500 MG TAB PO SCH ×2 (08:45→20:33)
[2021-03-21] MEDS: Gabapentin 300 MG CAP PO SCH ×3 (08:46→20:33)
[2021-03-21] MEDS: Potassium Chloride 20 MEQ TAB PO SCH ×2 (08:47→17:24)
[2021-03-21] MEDS: HumaLOG 300 UNITS/3 ML VIAL SC PRN (17:24)
[2021-03-22 05:45] VITALS: BMI 27.9
[2021-03-22 07:01] LABS: #Basophils 0.1 thou/uL (0.0-0.2); #Eosinphils 0.1 thou/uL (0.0-0.7); #Lymphocytes 1.8 thou/uL (1.20-3.40); #Monocytes 0.6 thou/uL (0.11-0.59); #Neutrophils 4.1 thou/uL (1.40-6.50); %Eosinophils 0.9 % (0.0-10.0); %Lymphocytes 27.8 % (21.0-51.0); %Monocytes 8.4 % (0.0-10.0); %Neutrophils 61.9 % (42.0-75.0); Hemoglobin 13.8 g/dL (14.0-18.0); Mean Corpuscular HGB CONC 33.3 g/dL (32.0-36.0); Mean Corpuscular Hemoglobin 31.4 pg (27.0-31.0); Mean Corpuscular Volume 94.2 fL (78.0-98.0); Mean Platelet Volume 6.6 fL (7.4-10.4); Platelet Count 247 thou/uL (130-400); RBC Distribution Width 11.6 % (11.5-14.5); Red Blood Cell (RBC) Count 4.41 mill/uL (4.70-6.10); White Blood Cell (WBC) Count 6.6 thou/uL (4.8-10.8)
[2021-03-22 07:11] LABS: Anion Gap 12 mmol/L (10-20); BUN (Urea Nitrogen) 22 mg/dL (8.4-25.7); Calc. Creatinine Clearance 88 mL/min (70-130); Calcium 8.8 mg/dL (7.8-10.44); Carbon Dioxide 25 mmol/L (23-31); Chloride 107 mmol/L (98-107); Glucose 94 mg/dL (83-110); Potassium 4.1 mmol/L (3.5-5.1); Sodium 140 mmol/L (136-145)
[2021-03-22] MEDS: Clopidogrel Bisulfate 75 MG TAB PO SCH (08:32)
[2021-03-22] MEDS: Potassium Chloride 20 MEQ TAB PO SCH ×2 (08:32→17:23)
[2021-03-22] MEDS: Famotidine 20 MG TAB PO SCH ×2 (08:32→20:47)
[2021-03-22] MEDS: hydrALAZINE 25 MG TAB PO SCH ×3 (08:33→20:47)
[2021-03-22] MEDS: Aspirin Chewable 81 MG TAB PO SCH (08:33)
[2021-03-22] MEDS: predniSONE 10 MG TAB PO SCH (08:33)
[2021-03-22] MEDS: metFORMIN 500 MG TAB PO SCH ×2 (08:33→20:47)
[2021-03-22] MEDS: Amlodipine 10 MG TAB PO SCH (08:34)
[2021-03-22] MEDS: Gabapentin 300 MG CAP PO SCH ×3 (08:34→20:47)
[2021-03-22] MEDS: traMADol HCl 50 MG TAB PO PRN (15:51)
[2021-03-22] MEDS: HumaLOG 300 UNITS/3 ML VIAL SC PRN (17:23)
[2021-03-23] MEDS: traMADol HCl 50 MG TAB PO PRN (05:36)
[2021-03-23] MEDS: Potassium Chloride 20 MEQ TAB PO SCH (08:01)
[2021-03-23] MEDS: predniSONE 10 MG TAB PO SCH (08:01)
[2021-03-23] MEDS: Gabapentin 300 MG CAP PO SCH ×2 (08:02→14:17)
[2021-03-23] MEDS: Amlodipine 10 MG TAB PO SCH (08:03)
[2021-03-23] MEDS: Famotidine 20 MG TAB PO SCH (08:05)
[2021-03-23] MEDS: hydrALAZINE 25 MG TAB PO SCH ×2 (08:05→14:19)
[2021-03-23] MEDS: Clopidogrel Bisulfate 75 MG TAB PO SCH (08:06)
[2021-03-23] MEDS: metFORMIN 500 MG TAB PO SCH (08:06)
[2021-03-23] MEDS: Aspirin Chewable 81 MG TAB PO SCH (08:06)
[2021-03-23 08:49] VITALS: TEMP 98.3
[2021-03-23 16:40] VITALS: BP 140/67
[2021-03-24 11:48] LABS: SARS-CoV-2 PCR by NAA Not Detected (NotDetected)
== END 2021-03-23 16:25 | disposition home or self-care (01) | DRG 547 ==
LOC: EEVIPCON 16:04 → NAV ACUTE 16:04
PROVIDERS: ADMIT Family Medicine; ATTEND Family Medicine
DX: M35.3 Polymyalgia rheumatica (principal); I10 Essential (primary) hypertension; I25.10 Atherosclerotic heart disease of native coronary artery without angina pectoris; E11.51 Type 2 diabetes mellitus with diabetic peripheral angiopathy without gangrene; M54.30 Sciatica, unspecified side; R53.81 Other malaise; Z20.822 Contact with and (suspected) exposure to COVID-19; Z88.8 Allergy status to other drugs, medicaments and biological substances; Z98.890 Other specified postprocedural states; Z95.1 Presence of aortocoronary bypass graft; Z79.82 Long term (current) use of aspirin; Z79.02 Long term (current) use of antithrombotics/antiplatelets; Z79.899 Other long term (current) drug therapy; Z79.84 Long term (current) use of oral hypoglycemic drugs
CPT/HCPCS: 36416; 80048; 83036; 85025; 36415-59; J1815; J7512; U0003; U0005

== ENCOUNTER 2022-02-28 17:00 | Emergency (ER) | payer MEDICARE ==
[2022-02-28] MEDS ORDERED: traMADol HCl 50 MG TAB ONE (17:45)
[2022-02-28] MEDS ORDERED: Cephalexin 250 MG CAP ONE (18:26)
== END 2022-02-28 18:32 | disposition home or self-care (01) ==
LOC: NAV ERS 17:00
DX: S41.112A Laceration without foreign body of left upper arm, initial encounter (principal); I25.10 Atherosclerotic heart disease of native coronary artery without angina pectoris; E78.00 Pure hypercholesterolemia, unspecified; I10 Essential (primary) hypertension; Z23 Encounter for immunization; W18.00XA Striking against unspecified object with subsequent fall, initial encounter
CPT/HCPCS: 90471

== ENCOUNTER 2022-07-09 09:06 | Outpatient (CLI) | payer MEDICARE | END 2022-07-09 09:07 | disposition home or self-care (01) | LOC: NAV CT 09:06 | PROVIDERS: ATTEND Specialist | DX: Z01.812 Encounter for preprocedural laboratory examination (principal); D69.2 Other nonthrombocytopenic purpura; R04.2 Hemoptysis; K76.89 Other specified diseases of liver; K80.20 Calculus of gallbladder without cholecystitis without obstruction; I25.10 Atherosclerotic heart disease of native coronary artery without angina pectoris; I70.0 Atherosclerosis of aorta | CPT/HCPCS: 36415; 71275; 82565 ==

== ENCOUNTER 2023-01-29 08:29 | Emergency (ER) | payer MEDICARE ==
[2023-01-29] MEDS ORDERED: traMADol HCl 50 MG TAB ONE (08:40)
[2023-01-29] MEDS ORDERED: methylPREDNISolone Sod Succ/PF 125 MG/2 ML VIAL ONE (10:04)
[2023-01-29] MEDS ORDERED: Bacitracin 1 PK ONE (10:06)
== END 2023-01-29 10:30 | disposition home or self-care (01) ==
LOC: NAV ERS 08:29
DX: S22.32XA Fracture of one rib, left side, initial encounter for closed fracture (principal); S42.001A Fracture of unspecified part of right clavicle, initial encounter for closed fracture; S61.412A Laceration without foreign body of left hand, initial encounter; E78.00 Pure hypercholesterolemia, unspecified; I10 Essential (primary) hypertension; Z79.899 Other long term (current) drug therapy; Z79.82 Long term (current) use of aspirin; W18.30XA Fall on same level, unspecified, initial encounter
CPT/HCPCS: 12002; 90471; J2930

== ENCOUNTER 2023-02-18 20:37 | Emergency (ER) | payer MEDICARE ==
[2023-02-18 21:08] LABS: #Basophils 0.1 thou/uL (0.0-0.2); #Lymphocytes 0.5 thou/uL (1.20-3.40); #Neutrophils 5.9 thou/uL (1.40-6.50); %Basophils 0.9 % (0.0-1.0); %Lymphocytes 7.2 % (21.0-51.0); %Monocytes 12.7 % (0.0-10.0); %Neutrophils 79.2 % (42.0-75.0); Hematocrit 35.3 % (42.0-52.0); Hemoglobin 11.7 g/dL (14.0-18.0); Mean Corpuscular HGB CONC 33.1 g/dL (32.0-36.0); Mean Corpuscular Hemoglobin 28.5 pg (27.0-31.0); Mean Corpuscular Volume 85.8 fl (78.0-98.0); Mean Platelet Volume 7.7 fL (7.4-10.4); Platelet Count 265 10x3/uL (130-400); RBC Distribution Width 12.8 % (11.5-14.5); Red Blood Cell (RBC) Count 4.11 mill/uL (4.70-6.10); White Blood Cell (WBC) Count 7.5 10x3/uL (4.8-10.8)
[2023-02-18 21:14] LABS: INR-International Normal Ratio 1.1; PTT 27.3 sec (22.9-36.1); Prothrombin Time 14.3 sec (12.0-14.7)
[2023-02-18 21:22] LABS: ALT (SGPT) 17 U/L (8-55); AST (SGOT) 24 U/L (5-34); Alkaline Phosphatase 111 U/L (40-110); Anion Gap 15 mmol/L (10-20); BUN (Urea Nitrogen) 18 mg/dL (8.4-25.7); Bilirubin, Total 0.8 mg/dL (0.2-1.2); Calc. Creatinine Clearance 0 mL/min (70-130); Carbon Dioxide 24 mmol/L (23-31); Chloride 102 mmol/L (98-107); Estimated GFR 72; Globulin 2.5 g/dL (2.4-3.5); Glucose 149 mg/dL (83-110); Protein, Total 6.5 g/dL (5.8-8.1); Sodium 137 mmol/L (136-145)
[2023-02-18 21:23] LABS: Troponin I 0.038 ng/mL (< 0.028)
[2023-02-18] MEDS ORDERED: Sodium Chloride 0.9% 1,000 ML ONE (23:03)
[2023-02-18] MEDS ORDERED: Aspirin 325 MG TAB ONE (23:10)
[2023-02-18] MEDS ORDERED: methylPREDNISolone Sod Succ/PF 125 MG/2 ML VIAL ONE (23:10)
[2023-02-18 23:11] LABS: Bilirubin Negative (Negative); Blood, Urine Negative (Negative); CAUTI Indications for Culture Alt mental st,lethar; Clarity Clear (Clear); Glucose, Urine (Dipstick) Negative (Negative); Ketone, Urine Negative (Negative); Leukocyte Negative (Negative); Nitrite Negative (Negative); Protein, Urine (Dipstick) 30 mg/dL (Neg-Trace); WBC/HPF 0-3 HPF (0-3)
[2023-02-18 23:12] LABS: Squamous Epithelial 0-3 HPF (0-3); Urine Culture Reflex No No
== END 2023-02-19 03:22 | disposition short-term general hospital (02) ==
LOC: NAV ERS 20:37
DX: R53.1 Weakness (principal); Z79.84 Long term (current) use of oral hypoglycemic drugs; Z79.82 Long term (current) use of aspirin
CPT/HCPCS: 36415; 36416; 70450; 70496; 71045; 80053; 81001; 84443; 84484; 85025; 85610; 85730; 93005; 94760; 96361; 96374; J2930; J7050; Q9967

== ENCOUNTER 2023-02-22 14:51 | Inpatient (IN) | payer MEDICARE ==
[2023-02-23] MEDS ORDERED: Ondansetron ODT 4 MG TAB SL PRN (13:34)
[2023-02-23] MEDS: AMOXicillin 250 MG CAP PO SCH ×2 (15:13→21:13)
[2023-02-23] MEDS ORDERED: Glucagon 1 MG/ML KIT IM PRN (16:50)
[2023-02-23] MEDS ORDERED: HumaLOG 300 UNITS/3 ML VIAL SC PRN (16:50)
[2023-02-23] MEDS ORDERED: Dextrose 50% Abboject 50 ML SYRINGE SLOW IVP PRN (16:50)
[2023-02-23] MEDS: metFORMIN 500 MG TAB PO SCH (17:09)
[2023-02-23] MEDS ORDERED: Famotidine 20 MG TAB PO SCH (21:00)
[2023-02-23] MEDS: Hydroxychloroquine Sulfate 200 MG TAB PO SCH (21:14)
[2023-02-23] MEDS: Cilostazol 100 MG TAB PO SCH (21:14)
[2023-02-23] MEDS: Pregabalin 50 MG CAP PO SCH (21:15)
[2023-02-23] MEDS: hydrALAZINE 25 MG TAB PO SCH (21:15)
[2023-02-24 06:05] LABS: #Basophils 0.1 thou/uL (0.0-0.2); #Lymphocytes 1.7 thou/uL (1.20-3.40); #Monocytes 0.5 thou/uL (0.11-0.59); #Neutrophils 4.1 thou/uL (1.40-6.50); %Basophils 0.8 % (0.0-1.0); %Eosinophils 0.4 % (0.0-10.0); %Lymphocytes 26.9 % (21.0-51.0); %Monocytes 7.8 % (0.0-10.0); %Neutrophils 64.1 % (42.0-75.0); Hematocrit 32.2 % (42.0-52.0); Hemoglobin 10.5 g/dL (14.0-18.0); Mean Corpuscular HGB CONC 32.7 g/dL (32.0-36.0); Mean Corpuscular Hemoglobin 27.8 pg (27.0-31.0); Mean Corpuscular Volume 85.2 fl (78.0-98.0); Mean Platelet Volume 7.9 fL (7.4-10.4); Platelet Count 286 10x3/uL (130-400); RBC Distribution Width 12.7 % (11.5-14.5); Red Blood Cell (RBC) Count 3.79 mill/uL (4.70-6.10); White Blood Cell (WBC) Count 6.4 10x3/uL (4.8-10.8)
[2023-02-24 06:20] LABS: ALT (SGPT) 19 U/L (8-55); AST (SGOT) 18 U/L (5-34); Albumin 3.5 g/dL (3.4-4.8); Alkaline Phosphatase 76 U/L (40-110); Anion Gap 13 mmol/L (10-20); BUN (Urea Nitrogen) 36 mg/dL (8.4-25.7); Bilirubin, Total 0.4 mg/dL (0.2-1.2); Calc. Creatinine Clearance 62 mL/min (70-130); Calcium 8.7 mg/dL (7.8-10.44); Carbon Dioxide 22 mmol/L (23-31); Chloride 110 mmol/L (98-107); Estimated GFR 58; Glucose 83 mg/dL (83-110); Potassium 3.9 mmol/L (3.5-5.1); Protein, Total 5.5 g/dL (5.8-8.1); Sodium 141 mmol/L (136-145)
[2023-02-24] MEDS: hydrALAZINE 25 MG TAB PO SCH ×2 (08:34→20:18)
[2023-02-24] MEDS: Cilostazol 100 MG TAB PO SCH ×2 (08:34→20:17)
[2023-02-24] MEDS: Cholecalciferol 1,000 UNITS (25 MCG) TAB PO SCH (08:34)
[2023-02-24] MEDS: Bempedoic Acid/Ezetimibe [Nexlizet 180-10 Mg Tablet] PO SCH (08:35)
[2023-02-24] MEDS: Losartan 25 MG TAB PO SCH (08:35)
[2023-02-24] MEDS: AMOXicillin 250 MG CAP PO SCH ×3 (08:35→20:17)
[2023-02-24] MEDS: Amlodipine 10 MG TAB PO SCH (08:35)
[2023-02-24] MEDS: metFORMIN 500 MG TAB PO SCH ×2 (08:35→16:53)
[2023-02-24] MEDS: Pregabalin 50 MG CAP PO SCH ×2 (08:35→20:18)
[2023-02-24] MEDS: predniSONE 20 MG TAB PO SCH (08:36)
[2023-02-24] MEDS: Aspirin 81 mg Enteric Coated Tablet PO SCH (08:36)
[2023-02-24] MEDS: Clopidogrel Bisulfate 75 MG TAB PO SCH (08:36)
[2023-02-24] MEDS: Sertraline 25 MG TAB PO SCH (08:36)
[2023-02-24] MEDS: Hydroxychloroquine Sulfate 200 MG TAB PO SCH ×2 (08:36→20:18)
[2023-02-24] MEDS: HumaLOG 300 UNITS/3 ML VIAL SC PRN (16:53)
[2023-02-25] MEDS: predniSONE 20 MG TAB PO SCH (07:58)
[2023-02-25] MEDS: metFORMIN 500 MG TAB PO SCH ×2 (07:58→17:03)
[2023-02-25] MEDS: Bempedoic Acid/Ezetimibe [Nexlizet 180-10 Mg Tablet] PO SCH (09:05)
[2023-02-25] MEDS: Pregabalin 50 MG CAP PO SCH ×2 (09:06→20:19)
[2023-02-25] MEDS: Losartan 25 MG TAB PO SCH (09:08)
[2023-02-25] MEDS: AMOXicillin 250 MG CAP PO SCH ×3 (09:08→20:18)
[2023-02-25] MEDS: Hydroxychloroquine Sulfate 200 MG TAB PO SCH ×2 (09:09→20:19)
[2023-02-25] MEDS: Cholecalciferol 1,000 UNITS (25 MCG) TAB PO SCH (09:10)
[2023-02-25] MEDS: Amlodipine 10 MG TAB PO SCH (09:11)
[2023-02-25] MEDS: Aspirin 81 mg Enteric Coated Tablet PO SCH (09:12)
[2023-02-25] MEDS: Sertraline 25 MG TAB PO SCH (09:12)
[2023-02-25] MEDS: Clopidogrel Bisulfate 75 MG TAB PO SCH (09:13)
[2023-02-25] MEDS: hydrALAZINE 25 MG TAB PO SCH ×3 (09:13→20:28)
[2023-02-25] MEDS: Cilostazol 100 MG TAB PO SCH ×2 (09:17→20:18)
[2023-02-25] MEDS: Acetaminophen 325 MG TAB PO PRN ×2 (12:54→23:35)
[2023-02-25] MEDS: HumaLOG 300 UNITS/3 ML VIAL SC PRN (17:02)
[2023-02-26] MEDS: predniSONE 20 MG TAB PO SCH (07:44)
[2023-02-26] MEDS: metFORMIN 500 MG TAB PO SCH ×2 (07:44→17:09)
[2023-02-26] MEDS: Cholecalciferol 1,000 UNITS (25 MCG) TAB PO SCH (08:20)
[2023-02-26] MEDS: Hydroxychloroquine Sulfate 200 MG TAB PO SCH ×2 (08:20→20:20)
[2023-02-26] MEDS: AMOXicillin 250 MG CAP PO SCH ×3 (08:22→20:18)
[2023-02-26] MEDS: Clopidogrel Bisulfate 75 MG TAB PO SCH (08:23)
[2023-02-26] MEDS: Amlodipine 10 MG TAB PO SCH (08:23)
[2023-02-26] MEDS: Sertraline 25 MG TAB PO SCH (08:23)
[2023-02-26] MEDS: Losartan 25 MG TAB PO SCH (08:23)
[2023-02-26] MEDS: Aspirin 81 mg Enteric Coated Tablet PO SCH (08:24)
[2023-02-26] MEDS: hydrALAZINE 25 MG TAB PO SCH ×2 (08:25→20:20)
[2023-02-26] MEDS: Cilostazol 100 MG TAB PO SCH ×2 (08:25→20:20)
[2023-02-26] MEDS: Bempedoic Acid/Ezetimibe [Nexlizet 180-10 Mg Tablet] PO SCH (08:26)
[2023-02-26] MEDS: Pregabalin 50 MG CAP PO SCH ×2 (08:59→20:19)
[2023-02-26] MEDS: HumaLOG 300 UNITS/3 ML VIAL SC PRN (17:09)
[2023-02-27] MEDS: Acetaminophen 325 MG TAB PO PRN ×2 (00:39→11:09)
[2023-02-27] MEDS: Cholecalciferol 1,000 UNITS (25 MCG) TAB PO SCH (07:46)
[2023-02-27] MEDS: Losartan 25 MG TAB PO SCH (07:47)
[2023-02-27] MEDS: AMOXicillin 250 MG CAP PO SCH ×3 (07:47→21:06)
[2023-02-27] MEDS: Amlodipine 10 MG TAB PO SCH (07:47)
[2023-02-27] MEDS: hydrALAZINE 25 MG TAB PO SCH ×2 (07:47→20:56)
[2023-02-27] MEDS: metFORMIN 500 MG TAB PO SCH ×2 (07:47→16:38)
[2023-02-27] MEDS: predniSONE 20 MG TAB PO SCH (07:48)
[2023-02-27] MEDS: Hydroxychloroquine Sulfate 200 MG TAB PO SCH ×2 (07:48→20:56)
[2023-02-27] MEDS: Clopidogrel Bisulfate 75 MG TAB PO SCH (07:48)
[2023-02-27] MEDS: Sertraline 25 MG TAB PO SCH (07:48)
[2023-02-27] MEDS: Pregabalin 50 MG CAP PO SCH ×2 (07:48→20:57)
[2023-02-27] MEDS: Cilostazol 100 MG TAB PO SCH ×2 (07:48→20:56)
[2023-02-27] MEDS: Aspirin 81 mg Enteric Coated Tablet PO SCH (07:48)
[2023-02-27] MEDS: Bempedoic Acid/Ezetimibe [Nexlizet 180-10 Mg Tablet] PO SCH (07:49)
[2023-02-27] MEDS: HumaLOG 300 UNITS/3 ML VIAL SC PRN (16:38)
[2023-02-27] MEDS ORDERED: AMOXicillin 250 MG CAP ONE (21:03)
[2023-02-28] MEDS: Acetaminophen 325 MG TAB PO PRN ×2 (00:05→20:45)
[2023-02-28] MEDS: predniSONE 20 MG TAB PO SCH (07:37)
[2023-02-28] MEDS: metFORMIN 500 MG TAB PO SCH ×2 (07:37→17:12)
[2023-02-28] MEDS: Cholecalciferol 1,000 UNITS (25 MCG) TAB PO SCH (07:37)
[2023-02-28] MEDS: Pregabalin 50 MG CAP PO SCH ×2 (07:38→20:35)
[2023-02-28] MEDS: Aspirin 81 mg Enteric Coated Tablet PO SCH (07:38)
[2023-02-28] MEDS: Cilostazol 100 MG TAB PO SCH ×2 (07:39→20:36)
[2023-02-28] MEDS: Hydroxychloroquine Sulfate 200 MG TAB PO SCH ×2 (07:39→20:35)
[2023-02-28] MEDS: Amlodipine 10 MG TAB PO SCH (07:39)
[2023-02-28] MEDS: hydrALAZINE 25 MG TAB PO SCH ×2 (07:39→20:36)
[2023-02-28] MEDS: Clopidogrel Bisulfate 75 MG TAB PO SCH (07:39)
[2023-02-28] MEDS: Losartan 25 MG TAB PO SCH (07:40)
[2023-02-28] MEDS: Bempedoic Acid/Ezetimibe [Nexlizet 180-10 Mg Tablet] PO SCH (07:41)
[2023-02-28] MEDS: Sertraline 25 MG TAB PO SCH (07:42)
[2023-02-28] MEDS: AMOXicillin 250 MG CAP PO SCH ×3 (09:43→20:35)
[2023-03-01] MEDS: predniSONE 20 MG TAB PO SCH (07:48)
[2023-03-01] MEDS: metFORMIN 500 MG TAB PO SCH ×2 (07:48→17:12)
[2023-03-01] MEDS: Cholecalciferol 1,000 UNITS (25 MCG) TAB PO SCH (09:00)
[2023-03-01] MEDS: AMOXicillin 250 MG CAP PO SCH ×3 (09:00→20:22)
[2023-03-01] MEDS: Sertraline 25 MG TAB PO SCH (09:00)
[2023-03-01] MEDS: Losartan 25 MG TAB PO SCH (09:00)
[2023-03-01] MEDS: Hydroxychloroquine Sulfate 200 MG TAB PO SCH ×2 (09:00→20:23)
[2023-03-01] MEDS: hydrALAZINE 25 MG TAB PO SCH ×2 (09:02→20:23)
[2023-03-01] MEDS: Pregabalin 50 MG CAP PO SCH ×2 (09:02→20:22)
[2023-03-01] MEDS: Cilostazol 100 MG TAB PO SCH ×2 (09:02→20:24)
[2023-03-01] MEDS: Aspirin 81 mg Enteric Coated Tablet PO SCH (09:02)
[2023-03-01] MEDS: Clopidogrel Bisulfate 75 MG TAB PO SCH (09:02)
[2023-03-01] MEDS: Amlodipine 10 MG TAB PO SCH (09:02)
[2023-03-01] MEDS: Bempedoic Acid/Ezetimibe [Nexlizet 180-10 Mg Tablet] PO SCH (09:04)
[2023-03-01 09:19] VITALS: BMI 29.5
[2023-03-01] MEDS: Acetaminophen 325 MG TAB PO PRN ×2 (13:24→21:53)
[2023-03-02 06:00] LABS: #Basophils 0.1 thou/uL (0.0-0.2); #Lymphocytes 1.4 thou/uL (1.20-3.40); #Monocytes 0.3 thou/uL (0.11-0.59); #Neutrophils 4.2 thou/uL (1.40-6.50); %Basophils 0.9 % (0.0-1.0); %Eosinophils 0.8 % (0.0-10.0); %Lymphocytes 23.2 % (21.0-51.0); %Monocytes 5.2 % (0.0-10.0); %Neutrophils 69.9 % (42.0-75.0); Hematocrit 30.1 % (42.0-52.0); Hemoglobin 9.6 g/dL (14.0-18.0); Mean Corpuscular Hemoglobin 27.3 pg (27.0-31.0); Mean Corpuscular Volume 85.3 fl (78.0-98.0); Mean Platelet Volume 7.4 fL (7.4-10.4); Platelet Count 255 10x3/uL (130-400); RBC Distribution Width 12.6 % (11.5-14.5); Red Blood Cell (RBC) Count 3.53 mill/uL (4.70-6.10)
[2023-03-02 06:14] LABS: Anion Gap 10 mmol/L (10-20); BUN (Urea Nitrogen) 24 mg/dL (8.4-25.7); Calc. Creatinine Clearance 84 mL/min (70-130); Calcium 8.6 mg/dL (7.8-10.44); Carbon Dioxide 24 mmol/L (23-31); Chloride 107 mmol/L (98-107); Estimated GFR 83; Glucose 79 mg/dL (83-110); Potassium 3.8 mmol/L (3.5-5.1); Sodium 137 mmol/L (136-145)
[2023-03-02] MEDS: metFORMIN 500 MG TAB PO SCH (07:57)
[2023-03-02] MEDS ORDERED: predniSONE 20 MG TAB PO SCH (08:00)
[2023-03-02] MEDS: Cholecalciferol 1,000 UNITS (25 MCG) TAB PO SCH (08:13)
[2023-03-02] MEDS: Losartan 25 MG TAB PO SCH (08:13)
[2023-03-02] MEDS: Aspirin 81 mg Enteric Coated Tablet PO SCH (08:14)
[2023-03-02] MEDS: Cilostazol 100 MG TAB PO SCH (08:14)
[2023-03-02] MEDS: hydrALAZINE 25 MG TAB PO SCH (08:14)
[2023-03-02] MEDS: Clopidogrel Bisulfate 75 MG TAB PO SCH (08:14)
[2023-03-02] MEDS: Bempedoic Acid/Ezetimibe [Nexlizet 180-10 Mg Tablet] PO SCH (08:15)
[2023-03-02] MEDS: Hydroxychloroquine Sulfate 200 MG TAB PO SCH (08:15)
[2023-03-02] MEDS: Sertraline 25 MG TAB PO SCH (08:15)
[2023-03-02] MEDS: Pregabalin 50 MG CAP PO SCH (08:15)
[2023-03-02] MEDS: Amlodipine 10 MG TAB PO SCH (08:18)
[2023-03-02 12:15] VITALS: BP 127/68; TEMP 97.9
== END 2023-03-02 12:08 | disposition home health service (06) | DRG 547 ==
LOC: NAV ACUTE 02-23 11:57
PROVIDERS: ADMIT Family Medicine; ATTEND Family Medicine
DX: M35.3 Polymyalgia rheumatica (principal); R53.81 Other malaise; K04.7 Periapical abscess without sinus; I10 Essential (primary) hypertension; I25.10 Atherosclerotic heart disease of native coronary artery without angina pectoris; E11.51 Type 2 diabetes mellitus with diabetic peripheral angiopathy without gangrene; I73.9 Peripheral vascular disease, unspecified; R26.89 Other abnormalities of gait and mobility; Z79.82 Long term (current) use of aspirin; Z79.899 Other long term (current) drug therapy
CPT/HCPCS: 36415; 36416; 80048; 80053; 85025; J1815; J7512

== ENCOUNTER 2023-06-16 09:04 | Emergency (ER) | payer MEDICARE ==
[2023-06-16 09:38] LABS: #Basophils 0.1 thou/uL (0.0-0.2); #Eosinphils 0.1 thou/uL (0.0-0.7); #Lymphocytes 1.2 thou/uL (1.20-3.40); #Monocytes 0.7 thou/uL (0.11-0.59); #Neutrophils 4.7 thou/uL (1.40-6.50); %Basophils 0.9 % (0.0-1.0); %Eosinophils 1.1 % (0.0-10.0); %Lymphocytes 17.9 % (21.0-51.0); %Monocytes 10.2 % (0.0-10.0); %Neutrophils 69.8 % (42.0-75.0); Hematocrit 43.4 % (42.0-52.0); Hemoglobin 13.6 g/dL (14.0-18.0); Mean Corpuscular HGB CONC 31.4 g/dL (32.0-36.0); Mean Corpuscular Hemoglobin 26.9 pg (27.0-31.0); Mean Corpuscular Volume 85.8 fl (78.0-98.0); Mean Platelet Volume 6.7 fL (7.4-10.4); Platelet Count 199 10x3/uL (130-400); Red Blood Cell (RBC) Count 5.06 mill/uL (4.70-6.10); White Blood Cell (WBC) Count 6.7 10x3/uL (4.8-10.8)
[2023-06-16 09:55] LABS: ALT (SGPT) 18 U/L (8-55); AST (SGOT) 18 U/L (5-34); Albumin 4.1 g/dL (3.4-4.8); Alkaline Phosphatase 74 U/L (40-110); Anion Gap 17 mmol/L (10-20); BUN (Urea Nitrogen) 22 mg/dL (8.4-25.7); Bilirubin, Total 0.6 mg/dL (0.2-1.2); Calc. Creatinine Clearance 0 mL/min (70-130); Calcium 9.2 mg/dL (7.8-10.44); Carbon Dioxide 19 mmol/L (23-31); Chloride 105 mmol/L (98-107); Estimated GFR 58; Globulin 2.1 g/dL (2.4-3.5); Glucose 125 mg/dL (83-110); Lipase 17 U/L (8-78); Potassium 3.8 mmol/L (3.5-5.1); Protein, Total 6.2 g/dL (5.8-8.1); Sodium 137 mmol/L (136-145)
[2023-06-16] MEDS ORDERED: Ondansetron PF 4 MG/2 ML Vial ONE (10:17)
== END 2023-06-16 11:05 | disposition home or self-care (01) ==
LOC: NAV ERS 09:04
DX: R11.2 Nausea with vomiting, unspecified (principal); E78.00 Pure hypercholesterolemia, unspecified; I25.10 Atherosclerotic heart disease of native coronary artery without angina pectoris; I10 Essential (primary) hypertension; Z79.82 Long term (current) use of aspirin; Z55.6 Problems related to health literacy; Z79.899 Other long term (current) drug therapy; Z79.84 Long term (current) use of oral hypoglycemic drugs
CPT/HCPCS: 80053; 83690; 85025; 93005; 96361; 96374; J2405

== ENCOUNTER 2023-06-19 09:36 | Emergency (ER) | payer MEDICARE ==
[2023-06-19 10:40] LABS: #Lymphocytes 1.1 thou/uL (1.20-3.40); #Monocytes 0.5 thou/uL (0.11-0.59); %Basophils 0.7 % (0.0-1.0); %Eosinophils 0.4 % (0.0-10.0); %Lymphocytes 19.5 % (21.0-51.0); %Neutrophils 71.4 % (42.0-75.0); Hematocrit 41.2 % (42.0-52.0); Mean Corpuscular HGB CONC 31.7 g/dL (32.0-36.0); Mean Corpuscular Hemoglobin 27.1 pg (27.0-31.0); Mean Corpuscular Volume 85.6 fl (78.0-98.0); Mean Platelet Volume 7.6 fL (7.4-10.4); Platelet Count 196 10x3/uL (130-400); RBC Distribution Width 15.9 % (11.5-14.5); Red Blood Cell (RBC) Count 4.81 mill/uL (4.70-6.10); White Blood Cell (WBC) Count 5.6 10x3/uL (4.8-10.8)
[2023-06-19] MEDS ORDERED: Sodium Chloride 0.9% 500 ML ONE (10:46)
[2023-06-19 11:09] LABS: ALT (SGPT) 16 U/L (8-55); AST (SGOT) 17 U/L (5-34); Alkaline Phosphatase 71 U/L (40-110); Anion Gap 17 mmol/L (10-20); BUN (Urea Nitrogen) 17 mg/dL (8.4-25.7); Bilirubin, Total 0.7 mg/dL (0.2-1.2); Calc. Creatinine Clearance 0 mL/min (70-130); Calcium 9.1 mg/dL (7.8-10.44); Carbon Dioxide 18 mmol/L (23-31); Chloride 106 mmol/L (98-107); Estimated GFR 73; Globulin 1.9 g/dL (2.4-3.5); Glucose 79 mg/dL (83-110); Lipase 17 U/L (8-78); Potassium 3.7 mmol/L (3.5-5.1); Protein, Total 5.9 g/dL (5.8-8.1); Sodium 137 mmol/L (136-145)
[2023-06-19] MEDS ORDERED: Sodium Chloride 0.9% 1,000 ML ONE (11:29)
[2023-06-19 11:53] LABS: Magnesium 1.6 mg/dL (1.6-2.6)
[2023-06-19 15:04] LABS: Bilirubin Negative (Negative); Blood, Urine Negative (Negative); Clarity Hazy (Clear); Glucose, Urine (Dipstick) Negative (Negative); Ketone, Urine Negative (Negative); Leukocyte Negative (Negative); Nitrite Negative (Negative); Protein, Urine (Dipstick) 100 mg/dL (Neg-Trace)
[2023-06-19 15:05] LABS: CAUTI Indications for Culture Pelvic or flank pain; Mucous/LPF 3+ LPF (<2+); RBC/HPF 0-3 HPF (0-3); Squamous Epithelial 0-3 HPF (0-3); Urine Culture Reflex No No; WBC/HPF 0-3 HPF (0-3)
[2023-06-19 15:06] LABS: Specific Gravity, Urine 1.024 (1.005-1.030)
[2023-06-19 16:17] LABS: Iron 83 ug/dL (65-175); Iron 85 ug/dL (65-175); Iron Binding Capacity, Total 259 mcg/dL (261-462); Iron Binding Capacity, Total 260 mcg/dL (261-462)
== END 2023-06-19 16:15 | disposition home or self-care (01) ==
LOC: NAV ERS 09:36
DX: K29.70 Gastritis, unspecified, without bleeding (principal); D64.9 Anemia, unspecified; E86.0 Dehydration; R63.0 Anorexia; E78.00 Pure hypercholesterolemia, unspecified; I10 Essential (primary) hypertension; Z79.82 Long term (current) use of aspirin; Z79.899 Other long term (current) drug therapy
CPT/HCPCS: 36416; 71045; 80053; 81001; 82274; 83540; 83550; 83690; 83735; 84443; 85025; 96360; J7030; J7050

== ENCOUNTER 2023-07-07 07:55 | Outpatient (CLI) | payer MEDICARE ==
[2023-07-07] MEDS ORDERED: Iopamidol 370 76% 100 ML VIAL ONE (09:00)
== END 2023-07-07 07:56 | disposition home or self-care (01) ==
LOC: NAV CT 07:55
PROVIDERS: ATTEND Family Medicine
DX: K52.9 Noninfective gastroenteritis and colitis, unspecified (principal); Z01.812 Encounter for preprocedural laboratory examination; R63.4 Abnormal weight loss; R10.13 Epigastric pain; K80.20 Calculus of gallbladder without cholecystitis without obstruction; K44.9 Diaphragmatic hernia without obstruction or gangrene; K76.89 Other specified diseases of liver
CPT/HCPCS: 36415; 74177; 82565; Q9967

== ENCOUNTER 2023-12-09 13:34 | Emergency (ER) | payer MEDICARE ==
[2023-12-09] MEDS ORDERED: Acetaminophen 500 MG TAB ONE (14:02)
[2023-12-09] MEDS ORDERED: Sodium Chloride 0.9% 500 ML ONE ×2 (14:04→15:47)
[2023-12-09 14:15] LABS: #Lymphocytes 0.9 thou/uL (1.20-3.40); #Monocytes 0.5 thou/uL (0.11-0.59); #Neutrophils 4.5 thou/uL (1.40-6.50); %Basophils 0.7 % (0.0-1.0); %Eosinophils 0.5 % (0.0-10.0); %Lymphocytes 14.4 % (21.0-51.0); %Neutrophils 75.5 % (42.0-75.0); Hematocrit 40.4 % (42.0-52.0); Hemoglobin 13.3 g/dL (14.0-18.0); Mean Corpuscular Hemoglobin 30.5 pg (27.0-31.0); Mean Corpuscular Volume 92.4 fl (78.0-98.0); Mean Platelet Volume 7.8 fL (7.4-10.4); Platelet Count 198 10x3/uL (130-400); RBC Distribution Width 12.9 % (11.5-14.5); Red Blood Cell (RBC) Count 4.37 mill/uL (4.70-6.10); White Blood Cell (WBC) Count 5.9 10x3/uL (4.8-10.8)
[2023-12-09 14:30] LABS: ALT (SGPT) 17 U/L (8-55); AST (SGOT) 18 U/L (5-34); Albumin 3.5 g/dL (3.4-4.8); Alkaline Phosphatase 71 U/L (40-110); Anion Gap 14 mmol/L (10-20); BUN (Urea Nitrogen) 19 mg/dL (8.4-25.7); Bilirubin, Total 0.7 mg/dL (0.2-1.2); Calc. Creatinine Clearance 0 mL/min (70-130); Carbon Dioxide 22 mmol/L (23-31); Chloride 109 mmol/L (98-107); Estimated GFR 66; Globulin 2.4 g/dL (2.4-3.5); Glucose 79 mg/dL (83-110); Potassium 3.8 mmol/L (3.5-5.1); Protein, Total 5.9 g/dL (5.8-8.1); Sodium 141 mmol/L (136-145)
[2023-12-09 15:38] LABS: Bilirubin Negative (Negative); Blood, Urine Negative (Negative); Clarity Clear (Clear); Glucose, Urine (Dipstick) Negative (Negative); Ketone, Urine Negative (Negative); Leukocyte Negative (Negative); Nitrite Negative (Negative); Protein, Urine (Dipstick) Negative (Neg-Trace); Urobilinogen 0.2 mg/dL (Less than 2); pH, Urine 5.5 (5.0-9.0)
[2023-12-09 16:49] LABS: Bacteria/HPF Rare-Few HPF (None Seen); CAUTI Indications for Culture Fever or rigors; RBC/HPF 0-3 HPF (0-3); Squamous Epithelial None Seen HPF (0-3); WBC/HPF 0-3 HPF (0-3)
[2023-12-09 16:50] LABS: Urine Culture Reflex No No
== END 2023-12-09 18:05 | disposition home or self-care (01) ==
LOC: NAV ERS 13:34
DX: E86.0 Dehydration (principal); B34.9 Viral infection, unspecified; I25.10 Atherosclerotic heart disease of native coronary artery without angina pectoris; I10 Essential (primary) hypertension; E78.00 Pure hypercholesterolemia, unspecified; Z95.5 Presence of coronary angioplasty implant and graft; Z79.82 Long term (current) use of aspirin; Z79.84 Long term (current) use of oral hypoglycemic drugs; Z79.899 Other long term (current) drug therapy
CPT/HCPCS: 51701; 71045; 80053; 81001; 83605; 85025; 87428; 93005; 96360; 96361; J7030

== ENCOUNTER 2023-12-12 15:04 | Inpatient (IN) | payer MEDICARE ==
[2023-12-12 16:34] LABS: #Basophils 0.1 thou/uL (0.0-0.2); #Lymphocytes 0.7 thou/uL (1.20-3.40); #Monocytes 0.9 thou/uL (0.11-0.59); #Neutrophils 6.7 thou/uL (1.40-6.50); %Basophils 0.7 % (0.0-1.0); %Eosinophils 0.2 % (0.0-10.0); %Lymphocytes 8.4 % (21.0-51.0); %Monocytes 11.2 % (0.0-10.0); %Neutrophils 79.6 % (42.0-75.0); Hematocrit 35.2 % (42.0-52.0); Hemoglobin 11.9 g/dL (14.0-18.0); Mean Corpuscular HGB CONC 33.8 g/dL (32.0-36.0); Mean Corpuscular Hemoglobin 30.4 pg (27.0-31.0); Mean Corpuscular Volume 89.9 fl (78.0-98.0); Mean Platelet Volume 8.1 fL (7.4-10.4); Platelet Count 171 10x3/uL (130-400); RBC Distribution Width 12.4 % (11.5-14.5); Red Blood Cell (RBC) Count 3.91 mill/uL (4.70-6.10); White Blood Cell (WBC) Count 8.4 10x3/uL (4.8-10.8)
[2023-12-12 16:56] LABS: ALT (SGPT) 14 U/L (8-55); AST (SGOT) 16 U/L (5-34); Albumin 3.2 g/dL (3.4-4.8); Alkaline Phosphatase 65 U/L (40-110); Anion Gap 14 mmol/L (10-20); BUN (Urea Nitrogen) 16 mg/dL (8.4-25.7); Bilirubin, Total 1.3 mg/dL (0.2-1.2); Calc. Creatinine Clearance 0 mL/min (70-130); Calcium 8.6 mg/dL (7.8-10.44); Carbon Dioxide 22 mmol/L (23-31); Chloride 104 mmol/L (98-107); Estimated GFR 78; Globulin 2.3 g/dL (2.4-3.5); Glucose 82 mg/dL (83-110); Potassium 3.5 mmol/L (3.5-5.1); Protein, Total 5.5 g/dL (5.8-8.1); Sodium 136 mmol/L (136-145)
[2023-12-12 17:38] LABS: Bilirubin Negative (Negative); Blood, Urine Trace (Negative); Clarity Slightly Cloudy (Clear); Glucose, Urine (Dipstick) Negative (Negative); Ketone, Urine Negative (Negative); Leukocyte Moderate (Negative); Nitrite Negative (Negative); Protein, Urine (Dipstick) 100 mg/dL (Neg-Trace); Specific Gravity, Urine 1.025 (1.005-1.030)
[2023-12-12 17:49] LABS: Bacteria/HPF 3+ HPF (None Seen); CAUTI Indications for Culture Alt mental st,lethar; Squamous Epithelial 0-3 HPF (0-3); WBC/HPF Greater than 50 HPF (0-3)
[2023-12-12 17:54] LABS: Urine Culture Reflex Yes Yes
[2023-12-12] MEDS ORDERED: Guaifenesin DM 100-10/5 ML UDCUP PO PRN (20:22)
[2023-12-12] MEDS ORDERED: Ondansetron ODT 4 MG TAB SL PRN (20:22)
[2023-12-12] MEDS ORDERED: Senokot S 8.6-50 MG TAB PO PRN (20:22)
[2023-12-12] MEDS ORDERED: Dextrose 50% Abboject 50 ML SYRINGE SLOW IVP PRN (20:38)
[2023-12-12] MEDS ORDERED: Glucagon 1 MG/ML KIT IM PRN (20:38)
[2023-12-12] MEDS ORDERED: Albuterol 200 PUFF (6.7GM INHALER) INH PRN (20:43)
[2023-12-12 21:50] VITALS: BMI 28.8
[2023-12-12] MEDS: Sodium Chloride 0.9% 1,000 ML ONE (22:20)
[2023-12-12] MEDS: cefTRIAXone (ROCEPHIN) 1 GM VIAL ONE (22:20)
[2023-12-12] MEDS: predniSONE 20 MG TAB PO SCH (22:21)
[2023-12-12] MEDS: Sodium Chloride 0.9% 100 ML ONE (22:21)
[2023-12-12] MEDS: Cilostazol 100 MG TAB PO SCH (22:22)
[2023-12-12] MEDS: metFORMIN 500 MG TAB PO SCH (22:22)
[2023-12-12] MEDS: Pregabalin 50 MG CAP PO SCH (22:22)
[2023-12-12] MEDS: hydrALAZINE 25 MG TAB PO SCH (22:22)
[2023-12-13 05:50] LABS: #Basophils 0.1 thou/uL (0.0-0.2); #Lymphocytes 0.5 thou/uL (1.20-3.40); #Monocytes 0.9 thou/uL (0.11-0.59); #Neutrophils 9.2 thou/uL (1.40-6.50); %Basophils 0.7 % (0.0-1.0); %Eosinophils 0.1 % (0.0-10.0); %Monocytes 8.5 % (0.0-10.0); %Neutrophils 85.6 % (42.0-75.0); Hematocrit 33.8 % (42.0-52.0); Hemoglobin 11.7 g/dL (14.0-18.0); Mean Corpuscular HGB CONC 34.7 g/dL (32.0-36.0); Mean Corpuscular Hemoglobin 31.1 pg (27.0-31.0); Mean Corpuscular Volume 89.5 fl (78.0-98.0); Mean Platelet Volume 8.1 fL (7.4-10.4); Platelet Count 172 10x3/uL (130-400); RBC Distribution Width 12.4 % (11.5-14.5); Red Blood Cell (RBC) Count 3.78 mill/uL (4.70-6.10); White Blood Cell (WBC) Count 10.7 10x3/uL (4.8-10.8)
[2023-12-13 06:04] LABS: ALT (SGPT) 18 U/L (8-55); AST (SGOT) 37 U/L (5-34); Alkaline Phosphatase 71 U/L (40-110); Anion Gap 18 mmol/L (10-20); BUN (Urea Nitrogen) 17 mg/dL (8.4-25.7); Bilirubin, Total 1.4 mg/dL (0.2-1.2); Calc. Creatinine Clearance 73 mL/min (70-130); Calcium 8.6 mg/dL (7.8-10.44); Carbon Dioxide 18 mmol/L (23-31); Chloride 105 mmol/L (98-107); Estimated GFR 70; Globulin 2.3 g/dL (2.4-3.5); Glucose 66 mg/dL (83-110); Potassium 4.2 mmol/L (3.5-5.1); Protein, Total 5.3 g/dL (5.8-8.1); Sodium 137 mmol/L (136-145)
[2023-12-13] MEDS: Clopidogrel Bisulfate 75 MG TAB PO SCH (08:42)
[2023-12-13] MEDS: Cholecalciferol 1,000 UNITS (25 MCG) TAB PO SCH (08:42)
[2023-12-13] MEDS: Amlodipine 10 MG TAB PO SCH (08:43)
[2023-12-13] MEDS: Pantoprazole DR 40 MG TAB PO SCH (08:44)
[2023-12-13] MEDS: Sertraline 100 MG TAB PO SCH (08:45)
[2023-12-13] MEDS: predniSONE 20 MG TAB PO SCH (08:45)
[2023-12-13] MEDS: Losartan 50 MG TAB PO SCH (08:45)
[2023-12-13] MEDS: Aspirin 81 mg Enteric Coated Tablet PO SCH (08:45)
[2023-12-13] MEDS: REMDESIVIR 200 MG in Sodium Chloride 0.9% 250 ML 210 ML IV SCH ×2 (10:10→10:38)
[2023-12-13 10:11] VITALS: BMI 28.8
[2023-12-13] MEDS: cefTRIAXone\\ROCEPHIN 2 GM in Sodium Chloride 0.9% 100 ML IVPB SCH (17:32)
[2023-12-13] MEDS: Insulin Lispro 100 UNIT/ML 10 ML VIAL SC PRN (21:23)
[2023-12-14 05:51] LABS: #Lymphocytes 0.8 thou/uL (1.20-3.40); #Monocytes 0.7 thou/uL (0.11-0.59); %Basophils 0.4 % (0.0-1.0); %Eosinophils 0.4 % (0.0-10.0); %Lymphocytes 9.7 % (21.0-51.0); %Monocytes 8.1 % (0.0-10.0); %Neutrophils 81.4 % (42.0-75.0); Hematocrit 31.3 % (42.0-52.0); Mean Corpuscular HGB CONC 35.2 g/dL (32.0-36.0); Mean Corpuscular Hemoglobin 31.2 pg (27.0-31.0); Mean Corpuscular Volume 88.7 fl (78.0-98.0); Mean Platelet Volume 8.6 fL (7.4-10.4); Platelet Count 199 10x3/uL (130-400); RBC Distribution Width 12.2 % (11.5-14.5); Red Blood Cell (RBC) Count 3.53 mill/uL (4.70-6.10); White Blood Cell (WBC) Count 8.6 10x3/uL (4.8-10.8)
[2023-12-14 06:06] LABS: ALT (SGPT) 25 U/L (8-55); AST (SGOT) 70 U/L (5-34); Albumin 2.8 g/dL (3.4-4.8); Alkaline Phosphatase 66 U/L (40-110); Anion Gap 16 mmol/L (10-20); BUN (Urea Nitrogen) 30 mg/dL (8.4-25.7); Bilirubin, Total 0.6 mg/dL (0.2-1.2); Calc. Creatinine Clearance 65 mL/min (70-130); Calcium 8.4 mg/dL (7.8-10.44); Carbon Dioxide 18 mmol/L (23-31); Chloride 107 mmol/L (98-107); Estimated GFR 61; Globulin 2.4 g/dL (2.4-3.5); Glucose 119 mg/dL (83-110); Potassium 3.7 mmol/L (3.5-5.1); Protein, Total 5.2 g/dL (5.8-8.1); Sodium 137 mmol/L (136-145)
[2023-12-14] MEDS: REMDESIVIR 100 MG in Sodium Chloride 0.9% 250 ML 230 ML IV SCH (09:17)
[2023-12-14] MEDS: Amlodipine 10 MG TAB PO SCH (09:40)
[2023-12-14] MEDS: hydrALAZINE 25 MG TAB PO SCH (09:40)
[2023-12-14] MEDS: Losartan 50 MG TAB PO SCH (09:41)
[2023-12-14 11:50] LABS: CRP,High Sensitivity (Inhouse) 16.21 mg/dL (< or = 0.5)
[2023-12-14] MEDS: Insulin Lispro 100 UNIT/ML 10 ML VIAL SC PRN (17:03)
[2023-12-15 05:57] LABS: #Monocytes 0.4 thou/uL (0.11-0.59); %Basophils 0.4 % (0.0-1.0); %Eosinophils 0.4 % (0.0-10.0); %Lymphocytes 13.2 % (21.0-51.0); %Monocytes 5.3 % (0.0-10.0); %Neutrophils 80.7 % (42.0-75.0); Hematocrit 31.8 % (42.0-52.0); Hemoglobin 10.8 g/dL (14.0-18.0); Mean Corpuscular HGB CONC 33.9 g/dL (32.0-36.0); Mean Corpuscular Hemoglobin 30.3 pg (27.0-31.0); Mean Corpuscular Volume 89.5 fl (78.0-98.0); Mean Platelet Volume 8.9 fL (7.4-10.4); Platelet Count 225 10x3/uL (130-400); Red Blood Cell (RBC) Count 3.55 mill/uL (4.70-6.10); White Blood Cell (WBC) Count 7.4 10x3/uL (4.8-10.8)
[2023-12-15 06:18] LABS: ALT (SGPT) 28 U/L (8-55); AST (SGOT) 49 U/L (5-34); Albumin 2.8 g/dL (3.4-4.8); Alkaline Phosphatase 63 U/L (40-110); Anion Gap 15 mmol/L (10-20); BUN (Urea Nitrogen) 34 mg/dL (8.4-25.7); Bilirubin, Total 0.4 mg/dL (0.2-1.2); Calc. Creatinine Clearance 69 mL/min (70-130); Calcium 8.4 mg/dL (7.8-10.44); Carbon Dioxide 20 mmol/L (23-31); Chloride 108 mmol/L (98-107); Estimated GFR 66; Globulin 2.4 g/dL (2.4-3.5); Glucose 124 mg/dL (83-110); Potassium 3.5 mmol/L (3.5-5.1); Protein, Total 5.2 g/dL (5.8-8.1); Sodium 139 mmol/L (136-145)
[2023-12-15] MEDS: Acetaminophen 325 MG TAB PO PRN (21:54)
[2023-12-16] MEDS: Melatonin 3 MG TAB PO SCH (20:10)
[2023-12-18] MEDS: predniSONE 20 MG TAB PO SCH (07:44)
[2023-12-18 10:01] VITALS: BP 127/63; TEMP 97.6
== END 2023-12-18 11:07 | disposition home or self-care (01) | DRG 178 ==
LOC: NAV ERS 15:04 → UNDOADMIN 20:32 → OBSVTOIN 20:32 → INTOOBSV 20:32 → NAV ACUTE 20:32
PROVIDERS: ADMIT Family Medicine; ATTEND Family Medicine
PROC: XW033E5 Introduction of Remdesivir Anti-infective into Peripheral Vein, Percutaneous Approach, New Technology Group 5 (ICD-10-PCS; principal; 2023-12-13)
DX: U07.1 COVID-19 (principal); F05 Delirium due to known physiological condition; N39.0 Urinary tract infection, site not specified; I10 Essential (primary) hypertension; E78.5 Hyperlipidemia, unspecified; E11.51 Type 2 diabetes mellitus with diabetic peripheral angiopathy without gangrene; I25.10 Atherosclerotic heart disease of native coronary artery without angina pectoris; M35.3 Polymyalgia rheumatica; E86.0 Dehydration; Z88.8 Allergy status to other drugs, medicaments and biological substances; Z95.1 Presence of aortocoronary bypass graft
CPT/HCPCS: 36415; 36416; 51701; 80053; 81001; 83605; 84145; 85025; 86141; 87077; 87086; 87186; 87428; 96361; 96365; J0248; J0696; J1815; J7030; J7050; J7512

== ENCOUNTER 2024-01-24 16:42 | Emergency (ER) | payer MEDICARE ==
[2024-01-24 18:12] LABS: #Lymphocytes 0.6 thou/uL (1.20-3.40); #Monocytes 0.5 thou/uL (0.11-0.59); #Neutrophils 5.6 thou/uL (1.40-6.50); %Basophils 0.5 % (0.0-1.0); %Eosinophils 0.1 % (0.0-10.0); %Lymphocytes 8.4 % (21.0-51.0); %Monocytes 7.1 % (0.0-10.0); %Neutrophils 83.9 % (42.0-75.0); Hematocrit 37.8 % (42.0-52.0); Hemoglobin 13.3 g/dL (14.0-18.0); Mean Corpuscular HGB CONC 35.2 g/dL (32.0-36.0); Mean Corpuscular Hemoglobin 31.3 pg (27.0-31.0); Mean Corpuscular Volume 89.1 fl (78.0-98.0); Mean Platelet Volume 7.4 fL (7.4-10.4); Platelet Count 218 10x3/uL (130-400); RBC Distribution Width 12.1 % (11.5-14.5); Red Blood Cell (RBC) Count 4.24 mill/uL (4.70-6.10); White Blood Cell (WBC) Count 6.7 10x3/uL (4.8-10.8)
[2024-01-24 18:30] LABS: ALT (SGPT) 17 U/L (8-55); AST (SGOT) 17 U/L (5-34); Albumin 4.1 g/dL (3.4-4.8); Alkaline Phosphatase 65 U/L (40-110); Anion Gap 16 mmol/L (10-20); BUN (Urea Nitrogen) 20 mg/dL (8.4-25.7); Calc. Creatinine Clearance 0 mL/min (70-130); Calcium 8.8 mg/dL (7.8-10.44); Carbon Dioxide 20 mmol/L (23-31); Chloride 102 mmol/L (98-107); Estimated GFR 85; Globulin 2.5 g/dL (2.4-3.5); Glucose 77 mg/dL (83-110); Potassium 4.3 mmol/L (3.5-5.1); Protein, Total 6.6 g/dL (5.8-8.1); Sodium 134 mmol/L (136-145)
[2024-01-24] MEDS ORDERED: Sodium Chloride 0.9% 1,000 ML ONE (18:45)
[2024-01-24 19:54] LABS: Bilirubin Negative (Negative); Blood, Urine Negative (Negative); Clarity Clear (Clear); Glucose, Urine (Dipstick) Negative (Negative); Ketone, Urine 15 mg/dL (Negative); Leukocyte Negative (Negative); Nitrite Negative (Negative); Protein, Urine (Dipstick) Negative (Neg-Trace); Specific Gravity, Urine 1.025 (1.005-1.030)
[2024-01-24 20:13] LABS: Bacteria/HPF 1+ HPF (None Seen); CAUTI Indications for Culture Alt mental st,lethar; RBC/HPF 0-3 HPF (0-3); Squamous Epithelial 0-3 HPF (0-3); WBC/HPF 0-3 HPF (0-3)
[2024-01-24 20:14] LABS: Urine Culture Reflex No No
== END 2024-01-24 20:50 | disposition home or self-care (01) ==
LOC: NAV ERS 16:42
DX: E86.0 Dehydration (principal); I10 Essential (primary) hypertension
CPT/HCPCS: 80053; 81001; 85025; J7030; 96360; 96361